=== PATIENT | female | born 1985 | race Caucasian/White ===

== ENCOUNTER 2017-04-28 09:56 | Emergency (ER) | payer BC ==
[2017-04-28] MEDS ORDERED: IPRATROPIUM-ALBUTEROL 3 ML NEB INHALATION STA (10:17)
--- NOTE | 2017-04-28 10:20 | ED ---
URI HPI - General Chief Complaint: Upper Respiratory Infection Stated Complaint: FLU Time Seen by Provider: 04/28/17 10:03 Source: patient, RN notes reviewed Mode of arrival: ambulatory Limitations: no limitations - History of Present Illness Initial Comments: This is a 31-year-old female history of asthma states she's had upper respiratory type symptoms. Past 3-4 days with fevers chills sweats cough with unknown colored phlegm rhinorrhea generalized body aches anterior chest wall pain. She states it hurts when she coughs and breathes but no other times. No nausea vomiting diarrhea she did state that her children recently had GI symptoms. Her is a smoker but apparently does smoke outside. No other complaints at this time she denies any overt shortness of breath exertional dyspnea and exertional fatigue and palpitations. MD Complaint: fever, cough, rhinorrhea, nasal congestion, other - Related Data Home Medications Medication Instructions Recorded Confirmed Albuterol Inhaler [Ventolin Hfa 1 - 2 puff INHALATION RT-Q6H PRN 04/28/17 Inhaler] Albuterol Nebulized [Ventolin 2.5 mg INHALATION RT-Q4H PRN 04/28/17 04/28/17 Nebulized] Control 1 tab PO HS 04/28/17 04/28/17 Fexofenadine HCl [Marilyn Allergy] 180 mg PO DAILY 04/28/17 04/28/17 Pseudoephedrine 12Hr [Sudafed 12 1 tab PO BID 04/28/17 04/28/17 Hour] Previous Rx's Medication Instructions Recorded Oseltamivir [Tamiflu] 75 mg PO Q12HR #10 cap 04/28/17 Allergies Allergy/AdvReac Type Severity Reaction Status Date / Time No Known Allergies Allergy Verified 04/28/17 12:42 Review of Systems ROS Statement: Those systems with pertinent positive or pertinent negative responses have been documented in the HPI. ROS Other: All systems not noted in ROS Statement are negative. Past Medical History Past Medical History: Asthma Additional Past Medical History / Comment(s): allergies History of Any Multi-Drug Resistant Organisms: None Reported Additional Past Surgical History / Comment(s): colonoscopy Past Psychological History: No Psychological Hx Reported Smoking Status: Former smoker Past Alcohol Use History: None Reported Past Drug Use History: None Reported General Exam - General Exam Comments Initial Comments: This is a well-developed well-nourished awake alert oriented 3 female Limitations: no limitations General appearance: alert, in no apparent distress Head exam: Present: atraumatic, normocephalic, normal inspection Eye exam: Present: normal appearance, PERRL, EOMI. Absent: scleral icterus, conjunctival injection, periorbital swelling ENT exam: Present: mucous membranes moist, other (Boggy swollen nasal mucosa with some clear drainage noted) Neck exam: Present: normal inspection. Absent: tenderness, meningismus, lymphadenopathy Respiratory exam: Present: chest wall tenderness (Tenderness palpation along the costochondral margin), decreased breath sounds. Absent: respiratory distress, wheezes, rales, rhonchi, stridor Cardiovascular Exam: Present: regular rate, normal rhythm, normal heart sounds. Absent: systolic murmur, diastolic murmur, rubs, gallop, clicks GI/Abdominal exam: Present: soft, normal bowel sounds. Absent: distended, tenderness, guarding, rebound, rigid Extremities exam: Present: normal inspection, full ROM, normal capillary refill. Absent: tenderness, pedal edema, joint swelling, calf tenderness Back exam: Present: normal inspection Neurological exam: Present: alert, oriented X3, CN II-XII intact Psychiatric exam: Present: normal affect, normal mood Skin exam: Present: warm, dry, intact, normal color. Absent: rash Course Vital Signs 04/28/17 04/28/17 04/28/17 09:57 10:32 10:42 Temperature 98.0 F Pulse Rate 101 H 100 100 Respiratory 20 Rate Blood Pressure 120/73 O2 Sat by Pulse 99 Oximetry Medical Decision Making - Medical Decision Making I did reevaluate patient several occasions she feels much improved after IV fluids. She'll be discharged on appropriate medication we did discuss EKG findings there likely old she has no other symptomatology no pleuritic chest pain no palpitations she will follow-up with her doctor and return when necessary - Lab Data Result diagrams: 04/28/17 11:30 04/28/17 11:30 Lab Results 04/28/17 04/28/17 04/28/17 Range/Units 10:20 11:30 11:30 WBC 3.4 L (3.8-10.6) k/uL RBC 4.87 (3.80-5.40) m/uL Hgb 13.9 (11.4-16.0) gm/dL Hct 42.7 (34.0-46.0) % MCV 87.7 (80.0-100.0) fL MCH 28.6 (25.0-35.0) pg MCHC 32.6 (31.0-37.0) g/dL RDW 12.1 (11.5-15.5) % Plt Count 207 (150-450) k/uL Neutrophils % 59 % Lymphocytes % 28 % Monocytes % 9 % Eosinophils % 1 % Basophils % 0 % Neutrophils # 2.0 (1.3-7.7) k/uL Lymphocytes # 1.0 (1.0-4.8) k/uL Monocytes # 0.3 (0-1.0) k/uL Eosinophils # 0.0 (0-0.7) k/uL Basophils # 0.0 (0-0.2) k/uL D-Dimer (<0.60) mg/L FEU Sodium (137-145) mmol/L Potassium (3.5-5.1) mmol/L Chloride (98-107) mmol/L Carbon Dioxide (22-30) mmol/L Anion Gap mmol/L BUN (7-17) mg/dL Creatinine (0.52-1.04) mg/dL Est GFR (CKD-EPI)AfAm (>60 ml/min/1.73 sqM) Est GFR (CKD-EPI)NonAf (>60 ml/min/1.73 sqM) Glucose (74-99) mg/dL Calcium (8.4-10.2) mg/dL Magnesium (1.6-2.3) mg/dL Total Bilirubin (0.2-1.3) mg/dL AST (14-36) U/L ALT (9-52) U/L Alkaline Phosphatase (38-126) U/L Total Creatine Kinase 53 (30-135) U/L CK-MB (CK-2) <0.2 (0.0-2.4) ng/mL CK-MB (CK-2) Rel Index Troponin I <0.012 (0.000-0.034) ng/mL Total Protein (6.3-8.2) g/dL Albumin (3.5-5.0) g/dL Influenza Type A RNA Detected H (Not Detectd) Influenza Type B (PCR) Not Detected (Not Detectd) 04/28/17 04/28/17 Range/Units 11:30 11:30 WBC (3.8-10.6) k/uL RBC (3.80-5.40) m/uL Hgb (11.4-16.0) gm/dL Hct (34.0-46.0) % MCV (80.0-100.0) fL MCH (25.0-35.0) pg MCHC (31.0-37.0) g/dL RDW (11.5-15.5) % Plt Count (150-450) k/uL Neutrophils % % Lymphocytes % % Monocytes % % Eosinophils % % Basophils % % Neutrophils # (1.3-7.7) k/uL Lymphocytes # (1.0-4.8) k/uL Monocytes # (0-1.0) k/uL Eosinophils # (0-0.7) k/uL Basophils # (0-0.2) k/uL D-Dimer 0.50 (<0.60) mg/L FEU Sodium 139 (137-145) mmol/L Potassium 4.5 (3.5-5.1) mmol/L Chloride 102 (98-107) mmol/L Carbon Dioxide 22 (22-30) mmol/L Anion Gap 15 mmol/L BUN 10 (7-17) mg/dL Creatinine 0.60 (0.52-1.04) mg/dL Est GFR (CKD-EPI)AfAm >90 (>60 ml/min/1.73 sqM) Est GFR (CKD-EPI)NonAf >90 (>60 ml/min/1.73 sqM) Glucose 104 H (74-99) mg/dL Calcium 8.9 (8.4-10.2) mg/dL Magnesium 1.7 (1.6-2.3) mg/dL Total Bilirubin 0.3 (0.2-1.3) mg/dL AST 31 (14-36) U/L ALT 33 (9-52) U/L Alkaline Phosphatase 64 (38-126) U/L Total Creatine Kinase (30-135) U/L CK-MB (CK-2) (0.0-2.4) ng/mL CK-MB (CK-2) Rel Index Troponin I (0.000-0.034) ng/mL Total Protein 7.3 (6.3-8.2) g/dL Albumin 4.1 (3.5-5.0) g/dL Influenza Type A RNA (Not Detectd) Influenza Type B (PCR) (Not Detectd) - Radiology Data Radiology results: report reviewed (Immunization no acute findings.), image reviewed Disposition Clinical Impression: Influenza A, Viral syndrome Disposition: HOME SELF-CARE Condition: Good Instructions: Influenza (ED), Viral Syndrome (ED) Prescriptions: Oseltamivir [Tamiflu] 75 mg PO Q12HR #10 cap Referrals: Rosie Martin DO [Primary Care Provider] - 1-2 days
[2017-04-28] MEDS ORDERED: OSELTAMIVIR 75 MG CAP PO STA (10:44)
--- NOTE | 2017-04-28 11:04 | XR ---
EXAMINATION TYPE: XR chest 2V DATE OF EXAM ORDERED: 04/28/2017 HISTORY: cough. REFERENCE: None. FINDINGS: The lungs are clear. Pleural spaces are clear. Heart size is normal. IMPRESSION: NORMAL CHEST.
[2017-04-28 11:47] LABS: Basophils % (A) 0 %; Eosinophils % (A) 1 %; HCT 42.7 % (34.0-46.0); HGB 13.9 gm/dL (11.4-16.0); Lymphocytes % (A) 28 %; MCH 28.6 pg (25.0-35.0); MCHC 32.6 g/dL (31.0-37.0); MCV 87.7 fL (80.0-100.0); Mean Platelet Volume 6.8; Monocytes # (A) 0.3 k/uL (0-1.0); Monocytes % (A) 9 %; Neutrophils % (A) 59 %; Platelet Count 207 k/uL (150-450); RBC 4.87 m/uL (3.80-5.40); RDW 12.1 % (11.5-15.5); WBC 3.4 k/uL (3.8-10.6)
[2017-04-28 11:54] LABS: ALT 33 U/L (9-52); AST 31 U/L (14-36); Albumin 4.1 g/dL (3.5-5.0); Alkaline Phosphatase 64 U/L (38-126); Anion Gap 15 mmol/L; Blood Urea Nitrogen 10 mg/dL (7-17); Calcium 8.9 mg/dL (8.4-10.2); Carbon Dioxide 22 mmol/L (22-30); Chloride 102 mmol/L (98-107); Glucose 104 mg/dL (74-99); Magnesium 1.7 mg/dL (1.6-2.3); Potassium 4.5 mmol/L (3.5-5.1); Sodium 139 mmol/L (137-145); Total Bilirubin 0.3 mg/dL (0.2-1.3); Total Protein 7.3 g/dL (6.3-8.2)
[2017-04-28] MEDS ORDERED: ONDANSETRON 4 MG/2 ML VIAL IVP STA (12:00)
[2017-04-28 12:07] LABS: Creatine Kinase 53 U/L (30-135)
[2017-04-28 12:20] LABS: Creatine Kinase MB <0.2 ng/mL (0.0-2.4); Troponin I <0.012 ng/mL (0.000-0.034)
[2017-04-28] MEDS ORDERED: SODIUM CHLORIDE 0.9% 1,000 ML IV ONE (12:36)
[2017-04-28 13:42] VITALS: BP 122/75; PULSE 90; RESP 18; TEMP 97.6
== END 2017-04-28 13:42 | disposition home or self-care (01) ==
LOC: EC 09:56
DX: J10.1 Influenza due to other identified influenza virus with other respiratory manifestations (principal); B34.9 Viral infection, unspecified; Z87.891 Personal history of nicotine dependence; Z79.899 Other long term (current) drug therapy
CPT/HCPCS: 36415; 94640; 93005; 85379; 80053; 82550; 82553; 83735; 84484; 85025; 87502; 71046; 99284; 96374; 96361; J2405

== ENCOUNTER 2017-06-09 19:45 | Emergency (ER) | payer BC ==
[2017-06-09 19:52] VITALS: RESP 18
--- NOTE | 2017-06-09 20:31 | XR ---
EXAMINATION TYPE: XR hand complete RT DATE OF EXAM: 06/09/2017 CLINICAL HISTORY: pain TECHNIQUE: Frontal, lateral and oblique images of the right hand are obtained. COMPARISON: None. FINDINGS: There is no acute fracture/dislocation evident. The joint spaces appear within normal limi ts. Dorsal soft tissue swelling identified. IMPRESSION: There is no acute fracture or dislocation ICD 10 NO FRACTURE, INITIAL EVALUATION
--- NOTE | 2017-06-09 21:10 | ED ---
General Adult HPI - General Chief complaint: Extremity Injury, Upper Stated complaint: Hand injury Time Seen by Provider: 06/09/17 20:28 Source: patient, RN notes reviewed Mode of arrival: ambulatory Limitations: no limitations - History of Present Illness Initial comments: 31-year-old female presents to the emergency department for chief complaint of right hand pain 2 hours. Patient states that she punched a car window with her right hand. Patient is right-hand dominant. Patient states it started to swell quickly and she was worried it was broken. Patient states it hurts to move her fingers. Patient denies pain in the scaphoid or wrist. Patient denies pain in the forearm or elbow. Patient denies any other injuries. Patient denies any complaint at this time including shortness of breath, chest pain, abdominal pain, nausea or vomiting. - Related Data Home Medications Medication Instructions Recorded Confirmed Albuterol Inhaler [Ventolin Hfa 1 - 2 puff INHALATION RT-Q6H PRN 04/28/17 Inhaler] Albuterol Nebulized [Ventolin 2.5 mg INHALATION RT-Q4H PRN 04/28/17 04/28/17 Nebulized] Control 1 tab PO HS 04/28/17 04/28/17 Fexofenadine HCl [Marilyn Allergy] 180 mg PO DAILY 04/28/17 04/28/17 Pseudoephedrine 12Hr [Sudafed 12 1 tab PO BID 04/28/17 04/28/17 Hour] Previous Rx's Medication Instructions Recorded Oseltamivir [Tamiflu] 75 mg PO Q12HR #10 cap 04/28/17 Allergies Allergy/AdvReac Type Severity Reaction Status Date / Time No Known Allergies Allergy Verified 06/09/17 19:52 Review of Systems ROS Statement: Those systems with pertinent positive or pertinent negative responses have been documented in the HPI. ROS Other: All systems not noted in ROS Statement are negative. Past Medical History Past Medical History: Asthma Additional Past Medical History / Comment(s): allergies, History of Any Multi-Drug Resistant Organisms: None Reported Additional Past Surgical History / Comment(s): colonoscopy, Past Psychological History: Depression Smoking Status: Former smoker Past Alcohol Use History: Occasional Past Drug Use History: None Reported General Exam Limitations: no limitations General appearance: alert, in no apparent distress Respiratory exam: Present: normal lung sounds bilaterally. Absent: respiratory distress, wheezes, rales, rhonchi, stridor Cardiovascular Exam: Present: regular rate, normal rhythm, normal heart sounds. Absent: systolic murmur, diastolic murmur, rubs, gallop, clicks Extremities exam: Present: tenderness (Patient has tenderness over the second and third metacarpal heads of the right hand. No scaphoid tenderness. No tenderness elsewhere in the right upper extremity or hand.), normal capillary refill (Refill less than 2 seconds and radial pulse 2+ in the right upper extremity.), joint swelling (Patient has moderate swelling noted to the second and third carpal heads of the right hand. There is also ecchymosis present.), other (Patient has full sensation in the right hand.). Absent: full ROM (Full range of motion of the right wrist. Patient has limited range of motion of the second and third digits. Patient has about 10 of flexion and extension of the second and third digit. ) Course Vital Signs 06/09/17 19:48 Temperature 98.0 F Pulse Rate 91 Respiratory 18 Rate Blood Pressure 131/79 O2 Sat by Pulse 98 Oximetry Procedures - Procedures Initial comment: Neurovascular intact before splint application Indication: Right hand pain Type: Short arm volar Wounds: no abrasions or lacerations underneath splint Neurovascular status: patient has sensation and movement of digits extending outside the splint, there is no cyanosis, capillary refill < 2 seconds Follow-up: patient given number for orthopedics and instructed to phone to make an appointment. Patient aware she can return to the Emergency Department if any difficulties. Medical Decision Making - Medical Decision Making 31-year-old female presents to the emergency department for a chief complaint of right and pain. This happened about 2 hours ago and patient punched a car window. Patient is right-hand dominant. On exam patient has ecchymosis and swelling noted of the second and third metacarpal heads on the right hand. She has tenderness to this area. No tenderness elsewhere in the R hand including the scaphoid. Full range of motion of the right wrist and rest of the right upper extremity. Neurovascular intact in the right upper extremity. X-ray shows no acute fractures or dislocations. However, patient was splinted in a volar short arm splint due to the limited range of motion and the amount of swelling. She will follow-up with orthopedics in one to 2 days. Patient was offered pain medication in the emergency department which she declined. Patient states she will go home and take Motrin. Patient was advised to take Motrin and Tylenol for pain. She was educated to rest, ice, and elevate the affected hand. She will follow up with orthopedics in one to 2 days. She will return to the emergency Department if she has any worsening symptoms. Disposition Clinical Impression: Hand injury Disposition: HOME SELF-CARE Condition: Good Instructions: Hand Sprain (ED), RICE Therapy (ED) Additional Instructions: Please take Motrin and Tylenol for pain relief. Please return to the emergency department if symptoms worsen. Remember to rest, ice, and elevate the right hand. Follow-up with orthopedics in one to 2 days. Is patient prescribed a controlled substance at d/c from ED?: No Referrals: Rosie Martin DO [Primary Care Provider] - 1-2 days Pb Elkins MD [STAFF PHYSICIAN] - 1-2 days Time of Disposition: 21:10
[2017-06-09 21:16] VITALS: BP 135/78; PULSE 89; TEMP 97.5
== END 2017-06-09 21:16 | disposition home or self-care (01) ==
LOC: EC 19:45
DX: S60.221A Contusion of right hand, initial encounter (principal); M25.441 Effusion, right hand; J45.909 Unspecified asthma, uncomplicated; Z87.891 Personal history of nicotine dependence; Z79.3 Long term (current) use of hormonal contraceptives; Z79.899 Other long term (current) drug therapy; Z91.09 Other allergy status, other than to drugs and biological substances; W22.8XXA Striking against or struck by other objects, initial encounter
CPT/HCPCS: 29125; 99283

== ENCOUNTER 2018-05-15 21:39 | Emergency (ER) | payer BC ==
[2018-05-15 21:51] VITALS: RESP 18; TEMP 98
--- NOTE | 2018-05-15 23:07 | XR ---
EXAM: XR Chest, 2 Views CLINICAL HISTORY: ITS.REASON XR Reason: Pain TECHNIQUE: Frontal and lateral views of the chest. COMPARISON: No relevant prior studies available. FINDINGS: Lungs: Unremarkable. No consolidation. Pleural space: Unremarkable. No pneumothorax. Heart: Unremarkable. No cardiomegaly. Mediastinum: Unremarkable. Bones/joints: No acute fracture. IMPRESSION: No acute findings.
[2018-05-15] MEDS ORDERED: IPRATROPIUM-ALBUTEROL 3 ML NEB INHALATION STA (23:21)
[2018-05-15] MEDS ORDERED: methylPREDNISolone SOD SUCCI 125 MG/2 ML VIAL IM ONE (23:21)
[2018-05-16 02:03] VITALS: BP 121/86; PULSE 62
--- NOTE | 2018-05-16 02:11 | CT ---
EXAM: CT Angiography Chest Without And With Intravenous Contrast CLINICAL HISTORY: ITS.REASON CT Reason: Pain TECHNIQUE: Axial computed tomographic angiography images of the chest without and with intravenous contrast using pulmonary embolism protocol. CTDI is 5 mGy and DLP is [address] exam was performed using one or more of the following dose reduction techniques: automated exposure control, adjustment of the mA and/or kV according to patient size, and/or use of iterative reconstruction technique. 3D reconstructed images were created and reviewed. COMPARISON: No relevant prior studies available. FINDINGS: Pulmonary arteries: Unremarkable. No pulmonary embolism. Aorta: No suspicious findings. No thoracic aortic aneurysm. Lungs: Unremarkable. No mass. No consolidation. Pleural space: Unremarkable. No significant effusion. No pneumothorax. Heart: Unremarkable. No cardiomegaly. No significant pericardial effusion. No evidence of RV dysfunction. Bones/joints: No acute fracture. No dislocation. Soft tissues: Unremarkable. Lymph nodes: Unremarkable. No enlarged lymph nodes. IMPRESSION: Normal chest CTA. No pulmonary embolism.
--- NOTE | 2018-05-16 02:17 | ED ---
URI HPI - General Chief Complaint: Upper Respiratory Infection Stated Complaint: SOB, Pain in Chest Time Seen by Provider: 05/15/18 22:27 Source: patient Mode of arrival: ambulatory Limitations: no limitations - History of Present Illness Initial Comments: 32-year-old female patient presents to the emergency department today for evaluation of shortness of breath and chest pain. Patient states she has had a cough starting 2 weeks ago when she was diagnosed with influenza. Patient states she does have a history of asthma. Patient states she has been having substernal chest pain and pressure. States that she has felt short of breath with this. Reports radiation of pain through to her back. She denies any sputum production or hemoptysis. Denies any current fever or chills. She does admit to taking a hormonal control pill. She denies any recent travel, calf pain, or leg pain. Patient denies any recent rash, abdominal pain, nausea, vomiting, diarrhea, constipation, back pain, numbness, tingling, dizziness, weakness, hematuria, dysuria, urinary urgency, urinary frequency, headache, visual changes, or any other complaints. She states her period ended yesterday, she denies chance of . - Related Data Home Medications Medication Instructions Recorded Confirmed Albuterol Inhaler [Ventolin Hfa 1 - 2 puff INHALATION RT-Q6H PRN 04/28/17 05/15/18 Inhaler] Albuterol Nebulized [Ventolin 2.5 mg INHALATION RT-QID PRN 04/28/17 05/15/18 Nebulized] Pseudoephedrine 12Hr [Sudafed 12 1 tab PO BID 04/28/17 05/15/18 Hour] Cetirizine HCl [Zyrtec] 10 mg PO DAILY 05/15/18 05/15/18 Norethindrone-E.estradiol-Iron 1 tab PO DAILY 05/15/18 05/15/18 [Junel Fe 1 mg-20 Mcg Tablet] Ranitidine HCl [Zantac] 150 mg PO BID 05/15/18 05/15/18 Previous Rx's Medication Instructions Recorded Ipratropium-Albuterol Nebulize 3 ml INHALATION QID PRN #30 neb 05/16/18 [Duoneb 0.5 mg-3 mg/3 ml Soln] predniSONE 50 mg PO DAILY #5 tablet 05/16/18 Allergies Allergy/AdvReac Type Severity Reaction Status Date / Time No Known Allergies Allergy Verified 05/15/18 22:39 Review of Systems ROS Statement: Those systems with pertinent positive or pertinent negative responses have been documented in the HPI. ROS Other: All systems not noted in ROS Statement are negative. Past Medical History Past Medical History: Asthma Additional Past Medical History / Comment(s): allergies, History of Any Multi-Drug Resistant Organisms: None Reported Additional Past Surgical History / Comment(s): colonoscopy, Past Psychological History: Depression Smoking Status: Former smoker Past Alcohol Use History: Occasional Past Drug Use History: None Reported General Exam Limitations: no limitations General appearance: alert, in no apparent distress, other (Physical well- developed, well-nourished adult female patient in no acute distress. Vital signs upon presentation are temperature 98.0F, pulse 68, respirations 18, blood pressure 119/80, pulse ox 96% on room air.) Eye exam: Present: normal appearance, PERRL, EOMI. Absent: scleral icterus, conjunctival injection, periorbital swelling ENT exam: Present: normal exam, normal oropharynx, mucous membranes moist Respiratory exam: Present: normal lung sounds bilaterally. Absent: respiratory distress, wheezes, rales, rhonchi, stridor Cardiovascular Exam: Present: regular rate, normal rhythm, normal heart sounds. Absent: systolic murmur, diastolic murmur, rubs, gallop, clicks GI/Abdominal exam: Present: soft, normal bowel sounds. Absent: distended, tenderness, guarding, rebound, rigid Neurological exam: Present: alert, oriented X3, CN II-XII intact Psychiatric exam: Present: normal affect, normal mood Skin exam: Present: warm, dry, intact, normal color. Absent: rash Course Vital Signs 05/15/18 05/15/18 05/16/18 21:49 23:59 00:05 Temperature 98 F Pulse Rate 68 76 84 Respiratory 18 Rate Blood Pressure 119/80 O2 Sat by Pulse 96 Oximetry 05/16/18 01:51 Temperature Pulse Rate 62 Respiratory 18 Rate Blood Pressure 121/86 O2 Sat by Pulse 99 Oximetry Medical Decision Making - Medical Decision Making 32-year-old female patient presents to the emergency department today complaining of substernal chest pressure and shortness of breath. Patient has been coughing for the last 2 weeks after having influenza. Physical examination is unremarkable. Lungs are clear to auscultation with good air movement. Patient was given Solu-Medrol and DuoNeb breathing treatment here in the emergency department, this did not improve her symptoms. Chest x-ray showed no acute cardiopulmonary process. EKG was unremarkable. Showed no changes from previous EKG from 2018. D-dimer was drawn and showed elevation of 0.78. CT angiography of the chest was obtained and showed no evidence of pulmonary embolism or other abnormalities. Did discuss findings and results with the patient. She'll be treated for acute bronchitis with steroids and DuoNeb treatments. She is instructed to follow-up with her primary care physician for recheck as soon as possible. She does have an appointment in the morning at 945. Return parameters were discussed in detail. She verbalizes understanding and agrees with this plan. - Lab Data Lab Results 05/16/18 Range/Units 01:01 D-Dimer 0.78 H (<0.60) mg/L FEU - EKG Data -: EKG Interpreted by Me EKG Comments: EKG obtained at 0053 shows normal sinus rhythm with a sinus arrhythmia. Ventricular rate is 72, VT interval 120, QRS duration 86, QT 400, QTC 430. No evidence of ST elevation or depression. - Radiology Data Radiology results: report reviewed, image reviewed Two-view x-ray of the chest is obtained. Report was reviewed in its entirety. Impression by Dr. Riojas shows no acute findings. CT angiography of the chest was obtained, report was reviewed in its entirety. Impression by Dr. Riojas shows normal chest CTA. No pulmonary embolism. Disposition Clinical Impression: Dyspnea Disposition: HOME SELF-CARE Condition: Good Instructions (If sedation given, give patient instructions): Dyspnea (ED) Additional Instructions: Do home breathing treatments. Take anti-inflammatory medications for pain relief. Complete steroid prescription in full. Follow up with your primary care physician for recheck in 1-2 days. Return immediately for any new, worsening, or concerning symptoms. Prescriptions: Ipratropium-Albuterol Nebulize [Duoneb 0.5 mg-3 mg/3 ml Soln] 3 ml INHALATION QID PRN #30 neb PRN Reason: Shortness Of Breath predniSONE 50 mg PO DAILY #5 tablet Is patient prescribed a controlled substance at d/c from ED?: No Referrals: Rosie MartinDO [Primary Care Provider] - 1-2 days Time of Disposition: 02:16
== END 2018-05-16 02:23 | disposition home or self-care (01) ==
LOC: EC 21:39
DX: R06.02 Shortness of breath (principal); R07.2 Precordial pain; R05 Cough; J45.909 Unspecified asthma, uncomplicated; Z87.891 Personal history of nicotine dependence; Z79.3 Long term (current) use of hormonal contraceptives; Z79.899 Other long term (current) drug therapy
CPT/HCPCS: 71046; 99285; 96372; J2930; 36415; 71275; 85379; 93005; 94640

== ENCOUNTER 2018-07-26 08:34 | Day surgery (SDC) | payer BC ==
[2018-07-10 12:11] VITALS: BMI 26.9
[~2018-07-26 08:34] MED LIST: LACTATED RINGERS 1,000 ML IV SCH
[2018-07-26 08:59] VITALS: RESP 16; TEMP 98
[2018-07-26] MEDS ORDERED: LIDOCAINE 1% 20 ML VIAL (10MG/ML) FOR IV START INTRADERMA ONE (09:05)
[2018-07-26] MEDS ORDERED: GLYCOPYRROLATE 0.2 MG/ML 2 ML VIAL ONE (09:35)
[2018-07-26] MEDS ORDERED: LIDOCAINE 1% INJ 10MG/ML (20 ML MDV) ONE (09:35)
[2018-07-26] MEDS ORDERED: PROPOFOL 10 MG/ML 20 ML VIAL IV ONE (09:35)
--- NOTE | 2018-07-26 09:45 | P.PCN ---
Date of Procedure: 07/26/18 Procedure(s) Performed: BRIEF HISTORY: Patient is a 32-year-old, pleasant, white female, scheduled for an upper endoscopy as a part of evaluation of long-standing history of GERD. Recently her symptoms have been progressively getting worse associated with abdominal bloating and hence medications which is changed to Prilosec 20 mg daily as well as Zantac as needed and still remains symptomatic. Hence scheduled for an upper endoscopy to evaluate further. PROCEDURE PERFORMED: Esophagogastroduodenoscopy with biopsy. PREOPERATIVE DIAGNOSIS: Long-standing history of GERD. IV sedation per anesthesia. PROCEDURE: After informed consent was obtained, the patient was brought into the endoscopy unit. IV sedation was administered by Anesthesia under continuous monitoring. Initially the Olympus GIF-140 video endoscope was inserted into the mouth. Esophagus intubated without any difficulty. It was gradually advanced into the stomach and duodenum and carefully examined. The bulb and the second part of the duodenum appeared normal. Acetaminophen from the duodenum to rule out celiac disease. The scope at this time was withdrawn to the stomach, adequately insufflated with air, and upon careful examination, mucosa of the antrum, had mild gastritis and biopsies were done from this area. The body, cardia and the fundus appeared normal. The scope was then withdrawn into the esophagus. Small hiatal hernia noted. The GE junction was located at 35 cm from the incisors. There were superficial erosions at the GE junction consistent with LA grade B reflux esophagitis. Rest of the esophagus appeared normal and the patient tolerated the procedure well. IMPRESSION: 1. Mild antral gastritis. 2. Small sliding Hiatal hernia and LA grade B reflux esophagitis. RECOMMENDATIONS: The findings of this examination were discussed with the patient as well as a family. She was advised to follow with the biopsy results. In the meantime she was advised to increase the Prilosec to 20 mg twice daily half hour before breakfast and dinnertime for 8 weeks and follow antireflux measures.. If she still remains symptomatic she was advised to follow up in office in 6 weeks.
[2018-07-26 10:18] VITALS: BP 117/81; PULSE 82
== END 2018-07-26 10:21 | disposition home or self-care (01) ==
LOC: ORWHC2ENDO 08:34
PROVIDERS: ATTEND Internal Medicine Gastroenterology
DX: K21.0 Gastro-esophageal reflux disease with esophagitis (principal); K29.50 Unspecified chronic gastritis without bleeding; K44.9 Diaphragmatic hernia without obstruction or gangrene; J45.909 Unspecified asthma, uncomplicated; Z79.82 Long term (current) use of aspirin; Z79.899 Other long term (current) drug therapy
CPT/HCPCS: 81025; 88305; 43239; J2001; J2704

== ENCOUNTER → 2019-02-04 | Outpatient (CLI) | payer OTHER ==
--- NOTE | 2019-02-04 18:09 | MR ---
EXAMINATION TYPE: MR hand RT wo con DATE OF EXAM: 02/04/2019 COMPARISON: Hand x-ray 06/09/2017 HISTORY: Rt hand pain, marker placed; hx of injury/fracture 1-2 yrs ago Multiplanar multiecho imaging of the right hand was performed with no contrast. The metacarpals are intact. I see no fracture. Joint spaces are fairly normal. The digits have fairly normal signal pattern. There is no evidence of focal bone destruction. There is no evidence of soft tissue mass. Flexor tendons of the hand appear intact. The carpal bones have fairly normal signal pat tern. There is no evidence of edema. Intercarpal joint spaces are fairly normal. There is slight incr eased joint fluid around the carpal bones. Triangular cartilage appears intact. There is no evidence of any subcutaneous edema. IMPRESSION: Very slight increased carpal joint fluid that could relate to minimal synovitis. Otherwise negative e xam. No fracture. There is clearing of the dorsal soft tissue swelling compared to old exam.
== END | disposition home or self-care (01) ==
LOC: RADMRIMAIN 05:56
PROVIDERS: ATTEND Orthopaedic Surgery
DX: M79.89 Other specified soft tissue disorders (principal); S60.221D Contusion of right hand, subsequent encounter

== ENCOUNTER 2019-08-15 16:48 | Emergency (ER) | payer OTHER ==
[2019-08-15] MEDS ORDERED: FAMOTIDINE 20 MG/2 ML VIAL IV STA (17:36)
--- NOTE | 2019-08-15 18:21 | ED ---
Abdominal Pain HPI - General Chief Complaint: Abdominal Pain Stated Complaint: Hernia Time Seen by Provider: 08/15/19 17:17 Source: patient Mode of arrival: ambulatory Limitations: no limitations - History of Present Illness Initial Comments: 33-year-old female presents today for chief complaint of epigastric pain she states she has had epigastric pain for the past week she states she was diagnosed approximately 2 years ago with a hiatal hernia she states that she feels like it is getting worse she states that her indigestion has been worsening for the past month and she was switched from Prilosec 20 mg to protonix 40mg twice daily. Patient states it has been worse even this week and she can taste acid in her mouth after eating. Denies dark or bloody stools. Denies lightheadedness of chest pain. Patient denies vomiting. Admits to chronic diarrhea secondary to IBS. Denies RUQ pain. Patient denies fevers. Patient denies lower abdominal pain or . Patient has no additional complaitns and presented to the ER for further evaluation/treatment. Patient appears well on arrival no acute distress. - Related Data Home Medications Medication Instructions Recorded Confirmed Albuterol Inhaler (Mhu) [Ventolin 1 - 2 puff INHALATION RT-Q6H PRN 04/28/17 07/26/18 Hfa Inhaler] Pseudoephedrine 12Hr [Sudafed 12 1 tab PO DAILY 04/28/17 07/26/18 Hour] Cetirizine HCl [Zyrtec] 10 mg PO DAILY 05/15/18 07/26/18 Norethindrone-E.estradiol-Iron 1 tab PO HS 05/15/18 07/26/18 [Junel Fe 1 mg-20 Mcg Tablet] Aspirin/Acetaminophen/Caffeine 1 each PO DAILY PRN 07/10/18 07/24/18 [Excedrin Migraine Caplet] Ibuprofen [Motrin Ib] 400 - 600 mg PO Q6H PRN 07/10/18 07/26/18 Omeprazole [PriLOSEC] 20 mg PO AC-BRKFST 07/10/18 07/26/18 Previous Rx's Medication Instructions Recorded Ipratropium-Albuterol Nebulize 3 ml INHALATION QID PRN #30 neb 05/16/18 [Duoneb 0.5 mg-3 mg/3 ml Soln] Allergies Allergy/AdvReac Type Severity Reaction Status Date / Time No Known Allergies Allergy Verified 07/24/18 09:05 Review of Systems ROS Statement: Those systems with pertinent positive or pertinent negative responses have been documented in the HPI. ROS Other: All systems not noted in ROS Statement are negative. Past Medical History Past Medical History: Asthma, GERD/Reflux, Skin Disorder Additional Past Medical History / Comment(s): Hx Allergies, eczema, migraines, hx vertigo. WORSENING GERD SINCE 03/2018.IBS, Hiatal hernia History of Any Multi-Drug Resistant Organisms: None Reported Additional Past Surgical History / Comment(s): WISDOM TOOTH. Colonoscopy Past Anesthesia/Blood Transfusion Reactions: No Reported Reaction Past Psychological History: Depression Smoking Status: Former smoker Past Alcohol Use History: Occasional Past Drug Use History: None Reported - Past Family History Mother Family Medical History: No Reported History General Exam - General Exam Comments Initial Comments: General: The patient is awake and alert, in no distress Eye: +3 mm pupils are equal, round and reactive to light, extra-ocular movements are intact. No nystagmus. There is normal conjunctiva bilaterally. No signs of icterus. Ears, nose, mouth and throat: There are moist mucous membranes and no oral lesions. Neck: The neck is supple, there is no tenderness or JVD. Cardiovascular: There is a regular rate and rhythm. No murmur, rub or gallop is appreciated. Respiratory: Lungs are clear to auscultation, respirations are non-labored, breath sounds are equal. No wheezes, stridor, rales, or rhonchi. Gastrointestinal: Soft, non-distended, epigastric tenderness to palpation of the abdomen without masses or organomegaly noted. There is no rebound or guarding present. Musculoskeletal: Normal ROM, no tenderness. Strength 5/5. Sensation intact. Raidial pulses equal bilaterally 2+. Neurological: A&O x 3. CN II-XII intact, There are no obvious motor or sensory deficits. Coordination appears grossly intact. Speech is normal. Skin: Skin is warm and dry and no rashes or lesions are noted. Psychiatric: Cooperative, appropriate mood & affect, normal judgment. Limitations: no limitations Course Vital Signs 08/15/19 08/15/19 16:55 19:53 Temperature 98.0 F 98.1 F Pulse Rate 71 78 Respiratory 18 16 Rate Blood Pressure 125/58 117/72 O2 Sat by Pulse 100 100 Oximetry Medical Decision Making - Medical Decision Making CT reveals liver lesion. Patient may have a peptic ulcer given area of pain, cannot r/o withtou direct visualization. Lipase WNL. Patient has no signs of pneumoperitoneum. Patient states she is a sick taste in mouth and history of hiatal hernia, symptoms may also be a results of reflux secondary to hernia. Patient was instructed to avoid NSAIDS like motrin/ibuprofen, take tylenol for pain. Avoid coffee, stress, spicy or acidic foods. Patient is to take pepcid with protonix and call GI on sunday to scheduled f/u. If pain increases/persists to return to the ER immediately. Patient verbalized understanding. Patient case discussed with Dr. Dickey who was agreeable to care plan and discharge. - Lab Data Result diagrams: 08/15/19 18:15 08/15/19 18:15 Lab Results 08/15/19 08/15/19 08/15/19 Range/Units 18:15 18:15 18:15 WBC 6.0 (3.8-10.6) k/uL RBC 4.55 (3.80-5.40) m/uL Hgb 13.5 (11.4-16.0) gm/dL Hct 39.8 (34.0-46.0) % MCV 87.6 (80.0-100.0) fL MCH 29.8 (25.0-35.0) pg MCHC 34.0 (31.0-37.0) g/dL RDW 12.0 (11.5-15.5) % Plt Count 286 (150-450) k/uL Neutrophils % 46 % Lymphocytes % 46 % Monocytes % 5 % Eosinophils % 1 % Basophils % 1 % Neutrophils # 2.7 (1.3-7.7) k/uL Lymphocytes # 2.8 (1.0-4.8) k/uL Monocytes # 0.3 (0-1.0) k/uL Eosinophils # 0.0 (0-0.7) k/uL Basophils # 0.0 (0-0.2) k/uL Sodium 133 L (137-145) mmol/L Potassium 4.0 (3.5-5.1) mmol/L Chloride 98 (98-107) mmol/L Carbon Dioxide 27 (22-30) mmol/L Anion Gap 8 mmol/L BUN 11 (7-17) mg/dL Creatinine 0.67 (0.52-1.04) mg/dL Est GFR (CKD-EPI)AfAm >90 (>60 ml/min/1.73 sqM) Est GFR (CKD-EPI)NonAf >90 (>60 ml/min/1.73 sqM) Glucose 92 (74-99) mg/dL Calcium 9.2 (8.4-10.2) mg/dL Total Bilirubin 0.4 (0.2-1.3) mg/dL AST 23 (14-36) U/L ALT 12 (4-34) U/L Alkaline Phosphatase 83 (38-126) U/L Troponin I <0.012 (0.000-0.034) ng/mL Total Protein 7.4 (6.3-8.2) g/dL Albumin 4.4 (3.5-5.0) g/dL Amylase 62 (30-110) U/L Lipase 83 (23-300) U/L Urine Color Urine Appearance (Clear) Urine pH (5.0-8.0) Ur Specific [place] (1.001-1.035) Urine Protein (Negative) Urine Glucose (UA) (Negative) Urine Ketones (Negative) Urine Blood (Negative) Urine Nitrite (Negative) Urine Bilirubin (Negative) Urine Urobilinogen (<2.0) mg/dL Ur Leukocyte Esterase (Negative) Urine RBC (0-5) /hpf Urine WBC (0-5) /hpf Ur Squamous Epith Cells (0-4) /hpf Urine Bacteria (None) /hpf Urine Mucus (None) /hpf Urine HCG, Qual (Not Detectd) 08/15/19 08/15/19 Range/Units 18:28 18:28 WBC (3.8-10.6) k/uL RBC (3.80-5.40) m/uL Hgb (11.4-16.0) gm/dL Hct (34.0-46.0) % MCV (80.0-100.0) fL MCH (25.0-35.0) pg MCHC (31.0-37.0) g/dL RDW (11.5-15.5) % Plt Count (150-450) k/uL Neutrophils % % Lymphocytes % % Monocytes % % Eosinophils % % Basophils % % Neutrophils # (1.3-7.7) k/uL Lymphocytes # (1.0-4.8) k/uL Monocytes # (0-1.0) k/uL Eosinophils # (0-0.7) k/uL Basophils # (0-0.2) k/uL Sodium (137-145) mmol/L Potassium (3.5-5.1) mmol/L Chloride (98-107) mmol/L Carbon Dioxide (22-30) mmol/L Anion Gap mmol/L BUN (7-17) mg/dL Creatinine (0.52-1.04) mg/dL Est GFR (CKD-EPI)AfAm (>60 ml/min/1.73 sqM) Est GFR (CKD-EPI)NonAf (>60 ml/min/1.73 sqM) Glucose (74-99) mg/dL Calcium (8.4-10.2) mg/dL Total Bilirubin (0.2-1.3) mg/dL AST (14-36) U/L ALT (4-34) U/L Alkaline Phosphatase (38-126) U/L Troponin I (0.000-0.034) ng/mL Total Protein (6.3-8.2) g/dL Albumin (3.5-5.0) g/dL Amylase (30-110) U/L Lipase (23-300) U/L Urine Color Yellow Urine Appearance Cloudy H (Clear) Urine pH 6.5 (5.0-8.0) Ur Specific [place] 1.022 (1.001-1.035) Urine Protein Trace H (Negative) Urine Glucose (UA) Negative (Negative) Urine Ketones Trace H (Negative) Urine Blood Trace H (Negative) Urine Nitrite Negative (Negative) Urine Bilirubin Negative (Negative) Urine Urobilinogen <2.0 (<2.0) mg/dL Ur Leukocyte Esterase Large H (Negative) Urine RBC 2 (0-5) /hpf Urine WBC 28 H (0-5) /hpf Ur Squamous Epith Cells 18 H (0-4) /hpf Urine Bacteria Moderate H (None) /hpf Urine Mucus Many H (None) /hpf Urine HCG, Qual Not Detected (Not Detectd) Disposition Clinical Impression: Epigastric pain, Liver lesion Disposition: HOME SELF-CARE Condition: Good Instructions (If sedation given, give patient instructions): Peptic Ulcer (ED), Epigastric Pain (ED) Additional Instructions: Please use medication as discussed. Please follow-up with family doctor in the next 2 days, recommend GI follow-up in 1 week. Please return to emergency room if the symptoms increase or worsen or for any other concerns. Is patient prescribed a controlled substance at d/c from ED?: No Referrals: Rosie Martin DO [Primary Care Provider] - 1-2 days Carmen Joseph MD [STAFF PHYSICIAN] - 1-2 days Time of Disposition: 19:37
[2019-08-15 18:40] LABS: Appearance,Urine Cloudy (Clear); Bacteria,Urine Moderate /hpf; Bilirubin,Urine Negative (Negative); Blood,Urine Trace (Negative); Color,Urine Yellow; Glucose,Urine (UA) Negative (Negative); Ketones,Urine Trace (Negative); Leukocyte Esterase,Urine Large (Negative); Mucus,Urine Many /hpf; Nitrite,Urine Negative (Negative); PH, Urine 6.5 (5.0-8.0); Protein,Urine Trace (Negative); RBC,Urine 2 /hpf (0-5); Specific Gravity,Urine 1.022 (1.001-1.035); Squamous Epithelial Cell,Urine 18 /hpf (0-4); Urobilinogen,Urine <2.0 mg/dL (<2.0); WBC,Urine 28 /hpf (0-5)
[2019-08-15 19:09] LABS: Basophils % (A) 1 %; Eosinophils % (A) 1 %; HCT 39.8 % (34.0-46.0); HGB 13.5 gm/dL (11.4-16.0); Lymphocytes # (A) 2.8 k/uL (1.0-4.8); Lymphocytes % (A) 46 %; MCH 29.8 pg (25.0-35.0); MCV 87.6 fL (80.0-100.0); Mean Platelet Volume 6.9; Monocytes # (A) 0.3 k/uL (0-1.0); Monocytes % (A) 5 %; Neutrophils # (A) 2.7 k/uL (1.3-7.7); Neutrophils % (A) 46 %; Platelet Count 286 k/uL (150-450); RBC 4.55 m/uL (3.80-5.40)
[2019-08-15 19:16] LABS: ALT 12 U/L (4-34); AST 23 U/L (14-36); African American GFR (CKD) >90 (>60 ml/min/1.73 sqM); Albumin 4.4 g/dL (3.5-5.0); Alkaline Phosphatase 83 U/L (38-126); Amylase 62 U/L (30-110); Anion Gap 8 mmol/L; Blood Urea Nitrogen 11 mg/dL (7-17); Calcium 9.2 mg/dL (8.4-10.2); Carbon Dioxide 27 mmol/L (22-30); Chloride 98 mmol/L (98-107); Glucose 92 mg/dL (74-99); Non-African American GFR(CKD) >90 (>60 ml/min/1.73 sqM); Sodium 133 mmol/L (137-145); Total Bilirubin 0.4 mg/dL (0.2-1.3); Total Protein 7.4 g/dL (6.3-8.2)
--- NOTE | 2019-08-15 19:33 | CT ---
EXAMINATION TYPE: CT abdomen pelvis w con DATE OF EXAM: 08/15/2019 COMPARISON: None HISTORY: abdominal pain, hx of hernia CT DLP: 651.1 mGycm Automated exposure control for dose reduction was used. TECHNIQUE: Helical acquisition of images from the lung bases through the pelvis have been completed. CONTRAST: Performed without Oral Contrast and with IV Contrast, patient injected with 100 mL of Isovue 300. FINDINGS: Small umbilical hernia contains fat. LUNG BASES: No significant abnormality is appreciated. AORTA: No significant abnormality is appreciated. LIVER/GB: There is a hyperdense focus measuring 14 mm in the inferior aspect of the right lobe of the liver which washes out on delayed imaging, gallbladder is normal. PANCREAS: No significant abnormality is seen. SPLEEN: No significant abnormality is seen. ADRENALS: No significant abnormality is seen. KIDNEYS: No significant abnormality is seen. REPRODUCTIVE ORGANS: No significant abnormality is seen BOWEL: Small duodenal diverticulum noted at the level of the uncinate process with an air-fluid leve l. There are some fluid-filled bowel loops, areas of possible small bowel wall thickening. The append ix is not seen. FREE AIR: No Free Air visible. ASCITES: None visible. PELVIC ADENOPATHY: None visualized. RETROPERITONEAL ADENOPATHY: No Retroperitoneal Adenopathy visible. URINARY BLADDER: No significant abnormality is seen. OSSEOUS STRUCTURES: No significant abnormality is seen. IMPRESSION: INDETERMINATE LIVER LESION COULD BE INDICATIVE OF FLASH FILLING HEMANGIOMA, LIVER MRI MAY BE OF BENEF IT TO FURTHER CHARACTERIZE THE LESION
[2019-08-15] MEDS ORDERED: MAG HYDROX/AL HYDROX/SIMETH 30 ML, HYOSCYAMINE ELIXIR 10 ML, LIDOCAINE VISCOUS 2% 10 ML PO STA ×3 (19:37)
[2019-08-15] MEDS ORDERED: ACET/COD 300 MG/30 MG STARTER PACK 6 TAB BTL PO STA (19:37)
[2019-08-15 19:55] VITALS: BP 117/72; PULSE 78; RESP 16; TEMP 98.1
== END 2019-08-15 19:55 | disposition home or self-care (01) ==
LOC: EC 16:48
DX: K76.89 Other specified diseases of liver (principal); R10.13 Epigastric pain; K21.9 Gastro-esophageal reflux disease without esophagitis; K58.9 Irritable bowel syndrome, unspecified; J45.909 Unspecified asthma, uncomplicated; G43.909 Migraine, unspecified, not intractable, without status migrainosus; Z79.51 Long term (current) use of inhaled steroids; Z79.82 Long term (current) use of aspirin; Z79.899 Other long term (current) drug therapy; Z87.19 Personal history of other diseases of the digestive system; Z87.2 Personal history of diseases of the skin and subcutaneous tissue; Z87.891 Personal history of nicotine dependence; Z98.890 Other specified postprocedural states
CPT/HCPCS: 36415; 93005; 80053; 82150; 83690; 84484; 85025; 81001; 81025; 87086; 74177; 96374; 99284; Q9967

== ENCOUNTER 2019-08-21 18:44 | Emergency (ER) | payer OTHER ==
[2019-08-21 18:52] VITALS: RESP 18
[2019-08-21] MEDS ORDERED: SODIUM CHLORIDE 0.9% 1,000 ML IV STA (19:07)
[2019-08-21] MEDS ORDERED: ONDANSETRON 4 MG/2 ML VIAL IVP STA (19:07)
[2019-08-21] MEDS ORDERED: MORPHINE SULFATE 4 MG/ML SYRINGE IV STA (19:07)
[2019-08-21] MEDS ORDERED: FAMOTIDINE 20 MG/2 ML VIAL IV STA (19:08)
--- NOTE | 2019-08-21 19:11 | ED ---
General Adult HPI - General Chief complaint: Abdominal Pain Stated complaint: Abdominal pain Time Seen by Provider: 08/21/19 19:00 Source: patient, RN notes reviewed, old records reviewed Mode of arrival: ambulatory Limitations: no limitations - History of Present Illness Initial comments: Patient is a pleasant 33-year-old female presenting to the emergency Department with abdominal discomfort. Patient states she has been having more abdominal problems over the past week or so. Patient states she was having upper abdominal discomfort at first. Patient states she did see her doctor again 3 days ago and her surgeon 2 days ago. They were considering problems with her hernia or gallbladder. Patient states today discomfort is more lower abdomen. Patient also states discomfort is worse. Patient states she does have chronic abdominal problems and has been diagnosed with irritable bowel syndrome. Patient has been having some loose stools however that has improved today. Patient has nausea without vomiting. No fever. - Related Data Home Medications Medication Instructions Recorded Confirmed Pseudoephedrine 12Hr [Sudafed 12 1 tab PO DAILY 04/28/17 08/21/19 Hour] Cetirizine HCl [Zyrtec] 10 mg PO DAILY 05/15/18 08/21/19 Norethindrone-E.estradiol-Iron 1 tab PO HS 05/15/18 08/21/19 [Junel Fe 1 mg-20 Mcg Tablet] Famotidine [Pepcid AC] 10 mg PO BID PRN 08/21/19 08/21/19 Pantoprazole [Protonix] 40 mg PO BID 08/21/19 08/21/19 Allergies Allergy/AdvReac Type Severity Reaction Status Date / Time No Known Allergies Allergy Verified 08/21/19 19:41 Review of Systems ROS Statement: Those systems with pertinent positive or pertinent negative responses have been documented in the HPI. ROS Other: All systems not noted in ROS Statement are negative. Constitutional: Denies: fever Eyes: Denies: eye pain ENT: Denies: ear pain Respiratory: Denies: cough Cardiovascular: Denies: chest pain Endocrine: Denies: fatigue Gastrointestinal: Reports: as per HPI, abdominal pain, nausea. Denies: vomiting Genitourinary: Denies: dysuria Musculoskeletal: Denies: back pain Skin: Denies: rash Neurological: Denies: weakness Past Medical History Past Medical History: Asthma, GERD/Reflux, Skin Disorder Additional Past Medical History / Comment(s): Hx Allergies, eczema, migraines, hx vertigo. WORSENING GERD SINCE 03/2018.IBS, Hiatal hernia History of Any Multi-Drug Resistant Organisms: None Reported Additional Past Surgical History / Comment(s): WISDOM TOOTH. Colonoscopy Past Anesthesia/Blood Transfusion Reactions: No Reported Reaction Past Psychological History: Depression Smoking Status: Never smoker Past Alcohol Use History: Occasional Past Drug Use History: None Reported - Past Family History Mother Family Medical History: No Reported History General Exam Limitations: no limitations General appearance: alert, in no apparent distress Head exam: Present: normocephalic Eye exam: Present: normal appearance Neck exam: Present: normal inspection Respiratory exam: Present: normal lung sounds bilaterally Cardiovascular Exam: Present: regular rate, normal rhythm Expanded Peripheral pulses: 2+: Dorsalis Pedis (R), Dorsalis Pedis (L) GI/Abdominal exam: Present: soft, tenderness (Mild to moderate tenderness right lower quadrant), normal bowel sounds. Absent: distended, guarding, rebound, rigid, pulsatile mass Extremities exam: Present: normal inspection Neurological exam: Present: alert Psychiatric exam: Present: normal affect, normal mood Skin exam: Present: normal color Course Vital Signs 08/21/19 18:46 Temperature 98.4 F Pulse Rate 71 Respiratory 18 Rate Blood Pressure 116/76 O2 Sat by Pulse 99 Oximetry Medical Decision Making - Medical Decision Making Patient reevaluated and resting comfortably in bed. Abdomen soft and nontender. Patient is receptive to taking a therapist at home with her. Patient does not want enema at this time. Patient refuses any oral treatment at this time. Patient is agreeable with follow-up. - Lab Data Result diagrams: 08/21/19 19:30 08/21/19 19:30 Lab Results 08/21/19 08/21/19 08/21/19 Range/Units 19:30 19:30 19:30 WBC 5.5 (3.8-10.6) k/uL RBC 4.74 (3.80-5.40) m/uL Hgb 14.0 (11.4-16.0) gm/dL Hct 41.4 (34.0-46.0) % MCV 87.4 (80.0-100.0) fL MCH 29.4 (25.0-35.0) pg MCHC 33.7 (31.0-37.0) g/dL RDW 12.0 (11.5-15.5) % Plt Count 347 (150-450) k/uL Neutrophils % 48 % Lymphocytes % 44 % Monocytes % 5 % Eosinophils % 1 % Basophils % 1 % Neutrophils # 2.6 (1.3-7.7) k/uL Lymphocytes # 2.4 (1.0-4.8) k/uL Monocytes # 0.3 (0-1.0) k/uL Eosinophils # 0.0 (0-0.7) k/uL Basophils # 0.0 (0-0.2) k/uL PT 9.4 (9.0-12.0) sec INR 0.9 (<1.2) APTT 22.6 (22.0-30.0) sec Sodium 134 L (137-145) mmol/L Potassium 4.0 (3.5-5.1) mmol/L Chloride 98 (98-107) mmol/L Carbon Dioxide 27 (22-30) mmol/L Anion Gap 9 mmol/L BUN 10 (7-17) mg/dL Creatinine 0.67 (0.52-1.04) mg/dL Est GFR (CKD-EPI)AfAm >90 (>60 ml/min/1.73 sqM) Est GFR (CKD-EPI)NonAf >90 (>60 ml/min/1.73 sqM) Glucose 107 H (74-99) mg/dL Calcium 9.4 (8.4-10.2) mg/dL Total Bilirubin 0.4 (0.2-1.3) mg/dL AST 22 (14-36) U/L ALT 13 (4-34) U/L Alkaline Phosphatase 70 (38-126) U/L Total Protein 7.9 (6.3-8.2) g/dL Albumin 4.8 (3.5-5.0) g/dL Amylase 66 (30-110) U/L Lipase 105 (23-300) U/L Urine Color Urine Appearance (Clear) Urine pH (5.0-8.0) Ur Specific [place] (1.001-1.035) Urine Protein (Negative) Urine Glucose (UA) (Negative) Urine Ketones (Negative) Urine Blood (Negative) Urine Nitrite (Negative) Urine Bilirubin (Negative) Urine Urobilinogen (<2.0) mg/dL Ur Leukocyte Esterase (Negative) Urine RBC (0-5) /hpf Urine WBC (0-5) /hpf Ur Squamous Epith Cells (0-4) /hpf Urine Bacteria (None) /hpf Urine Mucus (None) /hpf Urine HCG, Qual (Not Detectd) 08/21/19 08/21/19 Range/Units 19:45 19:45 WBC (3.8-10.6) k/uL RBC (3.80-5.40) m/uL Hgb (11.4-16.0) gm/dL Hct (34.0-46.0) % MCV (80.0-100.0) fL MCH (25.0-35.0) pg MCHC (31.0-37.0) g/dL RDW (11.5-15.5) % Plt Count (150-450) k/uL Neutrophils % % Lymphocytes % % Monocytes % % Eosinophils % % Basophils % % Neutrophils # (1.3-7.7) k/uL Lymphocytes # (1.0-4.8) k/uL Monocytes # (0-1.0) k/uL Eosinophils # (0-0.7) k/uL Basophils # (0-0.2) k/uL PT (9.0-12.0) sec INR (<1.2) APTT (22.0-30.0) sec Sodium (137-145) mmol/L Potassium (3.5-5.1) mmol/L Chloride (98-107) mmol/L Carbon Dioxide (22-30) mmol/L Anion Gap mmol/L BUN (7-17) mg/dL Creatinine (0.52-1.04) mg/dL Est GFR (CKD-EPI)AfAm (>60 ml/min/1.73 sqM) Est GFR (CKD-EPI)NonAf (>60 ml/min/1.73 sqM) Glucose (74-99) mg/dL Calcium (8.4-10.2) mg/dL Total Bilirubin (0.2-1.3) mg/dL AST (14-36) U/L ALT (4-34) U/L Alkaline Phosphatase (38-126) U/L Total Protein (6.3-8.2) g/dL Albumin (3.5-5.0) g/dL Amylase (30-110) U/L Lipase (23-300) U/L Urine Color Yellow Urine Appearance Cloudy H (Clear) Urine pH 6.0 (5.0-8.0) Ur Specific [place] 1.024 (1.001-1.035) Urine Protein Trace H (Negative) Urine Glucose (UA) Negative (Negative) Urine Ketones Negative (Negative) Urine Blood Negative (Negative) Urine Nitrite Negative (Negative) Urine Bilirubin Negative (Negative) Urine Urobilinogen 2.0 (<2.0) mg/dL Ur Leukocyte Esterase Small H (Negative) Urine RBC 1 (0-5) /hpf Urine WBC 7 H (0-5) /hpf Ur Squamous Epith Cells 8 H (0-4) /hpf Urine Bacteria Occasional H (None) /hpf Urine Mucus Many H (None) /hpf Urine HCG, Qual Not Detected (Not Detectd) - Radiology Data Radiology results: report reviewed (Computed tomography scan of the abdomen pelvis shows fecal stasis. Normal appendix.) Disposition Clinical Impression: Abdominal pain Disposition: HOME SELF-CARE Condition: Stable Instructions (If sedation given, give patient instructions): Abdominal Pain (ED) Additional Instructions: Please follow-up with primary care physician in the next day or 2 for recheck. Please also follow-up with her surgeon and ripsaw grader. Return for increased pain, fevers, worsening or changing symptoms or other concerns. Over -the-counter Metamucil. Is patient prescribed a controlled substance at d/c from ED?: No Referrals: Rosie Martin DO [Primary Care Provider] - 1-2 days Elysia Massey MD [STAFF PHYSICIAN] - 1-2 days Carmen Joseph MD [STAFF PHYSICIAN] - 1-2 days Time of Disposition: 20:54
[2019-08-21 19:38] LABS: Basophils % (A) 1 %; Eosinophils % (A) 1 %; HCT 41.4 % (34.0-46.0); Lymphocytes # (A) 2.4 k/uL (1.0-4.8); Lymphocytes % (A) 44 %; MCH 29.4 pg (25.0-35.0); MCHC 33.7 g/dL (31.0-37.0); MCV 87.4 fL (80.0-100.0); Mean Platelet Volume 6.7; Monocytes # (A) 0.3 k/uL (0-1.0); Monocytes % (A) 5 %; Neutrophils # (A) 2.6 k/uL (1.3-7.7); Neutrophils % (A) 48 %; Platelet Count 347 k/uL (150-450); RBC 4.74 m/uL (3.80-5.40); WBC 5.5 k/uL (3.8-10.6)
[2019-08-21 19:47] LABS: ALT 13 U/L (4-34); AST 22 U/L (14-36); African American GFR (CKD) >90 (>60 ml/min/1.73 sqM); Albumin 4.8 g/dL (3.5-5.0); Alkaline Phosphatase 70 U/L (38-126); Amylase 66 U/L (30-110); Anion Gap 9 mmol/L; Blood Urea Nitrogen 10 mg/dL (7-17); Calcium 9.4 mg/dL (8.4-10.2); Carbon Dioxide 27 mmol/L (22-30); Chloride 98 mmol/L (98-107); Glucose 107 mg/dL (74-99); INR 0.9 (<1.2); Lipase 105 U/L (23-300); Non-African American GFR(CKD) >90 (>60 ml/min/1.73 sqM); Partial Thromboplastin Time 22.6 sec (22.0-30.0); Prothrombin Time 9.4 sec (9.0-12.0); Sodium 134 mmol/L (137-145); Total Bilirubin 0.4 mg/dL (0.2-1.3); Total Protein 7.9 g/dL (6.3-8.2)
[2019-08-21 20:02] LABS: Appearance,Urine Cloudy (Clear); Bacteria,Urine Occasional /hpf; Bilirubin,Urine Negative (Negative); Blood,Urine Negative (Negative); Color,Urine Yellow; Glucose,Urine (UA) Negative (Negative); Ketones,Urine Negative (Negative); Leukocyte Esterase,Urine Small (Negative); Mucus,Urine Many /hpf; Nitrite,Urine Negative (Negative); Protein,Urine Trace (Negative); RBC,Urine 1 /hpf (0-5); Specific Gravity,Urine 1.024 (1.001-1.035); Squamous Epithelial Cell,Urine 8 /hpf (0-4); WBC,Urine 7 /hpf (0-5)
[2019-08-21] MEDS ORDERED: HYDROmorphone 1 MG/ML 1 ML SYRINGE IVP STA (20:09)
--- NOTE | 2019-08-21 20:45 | CT ---
EXAMINATION TYPE: CT abdomen pelvis w con DATE OF EXAM: 08/21/2019 COMPARISON: Prior CT 08/15/2019 HISTORY: RLQ PAIN CT DLP: 667.6 mGycm Automated exposure control for dose reduction was used. TECHNIQUE: Helical acquisition of images from the lung bases through the pelvis have been completed. CONTRAST: Performed without Oral Contrast and with IV Contrast, patient injected with 100 mL of Isovue 300. FINDINGS: LUNG BASES: No significant abnormality is appreciated. AORTA: No significant abnormality is appreciated. LIVER/GB: No significant abnormality is appreciated. PANCREAS: No significant abnormality is seen. SPLEEN: No significant abnormality is seen. ADRENALS: No significant abnormality is seen. KIDNEYS: No significant abnormality is seen. REPRODUCTIVE ORGANS: No significant abnormality is seen BOWEL: Small duodenal diverticulum suspected at the head of the pancreas level, air densities presen t near the distal common bile duct. Appendix is normal. Large amount of retained fecal debris present within the colon. FREE AIR: No Free Air visible. ASCITES: None visible. PELVIC ADENOPATHY: None visualized. RETROPERITONEAL ADENOPATHY: No Retroperitoneal Adenopathy visible. URINARY BLADDER: No significant abnormality is seen. OSSEOUS STRUCTURES: No significant abnormality is seen. IMPRESSION: CORRELATE FOR FECAL STASIS. APPENDICITIS IS NOT EVIDENT.
[2019-08-21] MEDS ORDERED: DOCUSATE 283 MG/5 ML ENEMA RECTAL STA (20:53)
[2019-08-21 21:56] VITALS: BP 117/78; PULSE 68; TEMP 97.9
== END 2019-08-21 21:45 | disposition home or self-care (01) ==
LOC: EC 18:44
DX: R10.31 Right lower quadrant pain (principal); K21.9 Gastro-esophageal reflux disease without esophagitis; Z79.899 Other long term (current) drug therapy
CPT/HCPCS: 36415; 80053; 82150; 83690; 85025; 85610; 85730; 81001; 81025; 74177; 99285; 96374; 96375 ×3; 96361 ×2; J2270; J2405; J1170; Q9967

== ENCOUNTER → 2019-08-29 | Outpatient (CLI) | payer OTHER ==
--- NOTE | 2019-08-29 10:08 | FL ---
EXAMINATION: Cervical and Thoracic Esophagram DATE OF EXAM: 08/29/2019 CLINICAL INDICATION: 33-year-old female R13.10, dysphagia, unspecified. Patient reports a hiatal manuel ia seen on endoscopy one year ago. History of worsening GERD over the last month. COMPARISON: None Total Fluoroscopy Time: 1 minute 19 seconds Total images: 35 FINDINGS: The swallowing mechanism is normal and hypopharyngeal anatomy is preserved. The cervical and thoracic portions have a normal course and caliber and normal motility. The mucosa is normal and no persistent filling defect is encountered. Some images show a tiny sliding hiatal hernia. Gastroesophageal reflux could not be elicited with Marla daniel or positional maneuvers at this time. IMPRESSION: 1. A tiny sliding hiatal hernia seen on a couple of the images. 2. Gastroesophageal reflux could not be elicited during the course of the exam. This does not exclude its possibility. 3. Otherwise, unremarkable esophagram.
== END | disposition home or self-care (01) ==
LOC: RADUSWWP 08:45
PROVIDERS: ATTEND Surgery Plastic and Reconstructive Surgery
DX: K44.9 Diaphragmatic hernia without obstruction or gangrene (principal); K21.9 Gastro-esophageal reflux disease without esophagitis
CPT/HCPCS: 74220

== ENCOUNTER 2019-09-03 08:34 | Day surgery (SDC) | payer OTHER ==
[2019-08-28 15:22] VITALS: BMI 23.1
--- NOTE | 2019-09-03 08:23 | P.GSHP ---
History of Present Illness H&P Date: 09/03/19 CHIEF COMPLAINT: GERD HISTORY OF PRESENT ILLNESS: The patient is a 33-year-old female who presents reports gastroesophageal reflux disease. Upper endoscopy was offered for further evaluation and management. PAST MEDICAL HISTORY: Please see list. PAST SURGICAL HISTORY: Please see list. MEDICATIONS: Please see list. ALLERGIES: Please see list. SOCIAL HISTORY: No illicit drug use FAMILY HISTORY: No reports of Crohn disease or ulcerative colitis. REVIEW OF ORGAN SYSTEMS: CONSTITUTIONAL: No reports of fevers or chills. GI: Denies any blood in stools or constipation. PHYSICAL EXAM: VITAL SIGNS: Stable GENERAL: Well-developed and pleasant in no acute distress. HEENT: No scleral icterus. Extraocular movements grossly intact. Moist buccal mucosa. NECK: Supple without lymphadenopathy. CHEST: Unlabored respirations. Equal bilateral excursions. CARDIOVASCULAR: Regular rate and rhythm. Distal 2+ pulses. ABDOMEN: Soft, nondistended. MUSCULOSKELETAL: No clubbing, cyanosis, or edema. ASSESSMENT: 1. Gastroesophageal reflux disease PLAN: 1. Recommend proceeding with an upper endoscopy Past Medical History Past Medical History: Asthma, GERD/Reflux, Skin Disorder Additional Past Medical History / Comment(s): eczema, migraines, hx vertigo, IBS/diarrhea, Hiatal hernia, chest pain d/t gerd, frequent uination with some lower abdominal pain at times History of Any Multi-Drug Resistant Organisms: None Reported Additional Past Surgical History / Comment(s): WISDOM TOOTH. Colonoscopy,EGD Past Anesthesia/Blood Transfusion Reactions: No Reported Reaction Smoking Status: Former smoker - Past Family History Mother Family Medical History: No Reported History Medications and Allergies Home Medications Medication Instructions Recorded Confirmed Type Pseudoephedrine 12Hr [Sudafed 12 1 tab PO DAILY 04/28/17 08/28/19 History Hour] Cetirizine HCl [Zyrtec] 10 mg PO DAILY 05/15/18 08/28/19 History Famotidine [Pepcid AC] 20 mg PO BID PRN 08/21/19 08/28/19 History Albuterol Inhaler [Ventolin Hfa 1 puff INHALATION DIRECTED PRN 08/28/19 08/28/19 History Inhaler] Cannabidiol (Cbd) [Epidiolex] 0 mg PO DIRECTED PRN 08/28/19 08/28/19 History Levalbuterol Inhaler 1 - 2 puff IH DIRECTED PRN 08/28/19 08/28/19 History Norethindrone AC-Eth Estradiol 1 tab PO 2030 08/28/19 08/28/19 History [Loestrin 21 1-20 Tablet] Pantoprazole [Protonix] 40 mg PO BID 08/28/19 08/28/19 History Allergies Allergy/AdvReac Type Severity Reaction Status Date / Time adhesive tape Allergy red skin Verified 08/28/19 15:08 and swelling
[2019-09-03 09:07] VITALS: TEMP 98.5
[2019-09-03] MEDS ORDERED: LIDOCAINE 1% (10MG/ML) FOR IV START INTRADERMA ONE (09:07)
[2019-09-03] MEDS ORDERED: PROPOFOL 10 MG/ML 20 ML VIAL IV ONE (09:47)
--- NOTE | 2019-09-03 10:02 | P.PCN ---
Date of Procedure: 09/03/19 Description of Procedure: PREOPERATIVE DIAGNOSIS: Gastroesophageal reflux disease. POSTOPERATIVE DIAGNOSIS: Gastritis. Gastroesophageal reflux disease. Diaphragmatic hiatal hernia OPERATION: Esophagogastroduodenoscopy with biopsies along antrum. SURGEON: Elysia Massey MD ANESTHESIA: MAC. INDICATIONS: The patient is a 33-year-old female who presents with a history of reflux disease. Benefits and risks of the procedure were described. Informed consent was obtained. DESCRIPTION: The patient was brought into the endoscopy suite and laid in the left lateral decubitus position. An Olympus gastroscope was passed along the posterior oropharynx down to the distal esophagus where the squamocolumnar junction was encountered at 34 cm from the incisors. The stomach was entered and no bile reflux was found. Additional findings are listed below. Biopsies with cold forceps were obtained of the antrum. The first through third portion of the duodenum was examined and unremarkable. Retroflexion of the scope confirmed Hill grade 4 lower esophageal valve. The squamocolumnar junction demonstrated LA grade B erosive esophagitis. The stomach was desufflated. The patient tolerated the procedure well. FINDINGS: Squamocolumnar junction 34 cm from the incisors. Diaphragmatic hiatus at 37 cm. Hiatal hernia, 3 cm Hill grade 4 lower esophageal valve. LA grade B erosive esophagitis. No active duodenitis. Chronic gastritis RECOMMENDATIONS: Upper endoscopy as needed. Plan - Discharge Summary New Discharge Prescriptions: Continue Pseudoephedrine 12Hr [Sudafed 12 Hour] 1 tab PO DAILY Cetirizine HCl [Zyrtec] 10 mg PO DAILY Famotidine [Pepcid AC] 20 mg PO BID PRN PRN Reason: Heartburn Norethindrone AC-Eth Estradiol [Loestrin 21 1-20 Tablet] 1 tab PO 2030 Pantoprazole [Protonix] 40 mg PO BID Levalbuterol Inhaler 1 - 2 puff IH DIRECTED PRN PRN Reason: sob Albuterol Inhaler [Ventolin Hfa Inhaler] 1 puff INHALATION DIRECTED PRN PRN Reason: sob Cannabidiol (Cbd) [Epidiolex] 0 mg PO DIRECTED PRN PRN Reason: Pain Discharge Medication List Pseudoephedrine 12Hr [Sudafed 12 Hour] 1 tab PO DAILY 04/28/17 [History] Cetirizine HCl [Zyrtec] 10 mg PO DAILY 05/15/18 [History] Famotidine [Pepcid AC] 20 mg PO BID PRN 08/21/19 [History] Albuterol Inhaler [Ventolin Hfa Inhaler] 1 puff INHALATION DIRECTED PRN 08/28/19 [History] Cannabidiol (Cbd) [Epidiolex] 0 mg PO DIRECTED PRN 08/28/19 [History] Levalbuterol Inhaler 1 - 2 puff IH DIRECTED PRN 08/28/19 [History] Norethindrone AC-Eth Estradiol [Loestrin 21 1-20 Tablet] 1 tab PO 2030 08/28/19 [History] Pantoprazole [Protonix] 40 mg PO BID 08/28/19 [History] Follow up Appointment(s)/Referral(s): Elysia Massey MD [STAFF PHYSICIAN] - 09/11/19 Patient Instructions/Handouts: Hiatal Hernia (DC) Discharge Disposition: HOME SELF-CARE
[2019-09-03 10:32] VITALS: BP 123/80; PULSE 60; RESP 18
== END 2019-09-03 10:41 | disposition home or self-care (01) ==
LOC: ORWHC2ENDO 08:34
PROVIDERS: ATTEND Surgery Plastic and Reconstructive Surgery
DX: K21.0 Gastro-esophageal reflux disease with esophagitis (principal); K22.10 Ulcer of esophagus without bleeding; K29.50 Unspecified chronic gastritis without bleeding; K44.9 Diaphragmatic hernia without obstruction or gangrene; J45.909 Unspecified asthma, uncomplicated; L30.9 Dermatitis, unspecified; G43.909 Migraine, unspecified, not intractable, without status migrainosus; K58.0 Irritable bowel syndrome with diarrhea; Z98.890 Other specified postprocedural states; Z87.891 Personal history of nicotine dependence; Z79.899 Other long term (current) drug therapy; Z79.3 Long term (current) use of hormonal contraceptives; Z91.09 Other allergy status, other than to drugs and biological substances
CPT/HCPCS: 81025; 88305; 43239; J2704

== ENCOUNTER → 2019-09-04 | Outpatient (CLI) | payer OTHER ==
--- NOTE | 2019-09-04 07:32 | US ---
EXAMINATION TYPE: US gallbladder DATE OF EXAM: 09/04/2019 COMPARISON: CT 08/21/2019 CLINICAL HISTORY: K81.1 Chronic cholecystitis. Pain EXAM MEASUREMENTS: Liver Length: 12.4 cm Gallbladder Wall: .2 cm CBD: .4 cm Right Kidney: 10.1 x 3.5 x 4.0 cm Pancreas: Tail obscured by overlying bowel gas Liver: wnl Gallbladder: wnl Evidence for sonographic Elkins's sign: No CBD: wnl Right Kidney: wnl , the cortical measured differentiation is maintained IMPRESSION: No evident abnormality
== END | disposition home or self-care (01) ==
LOC: RADUSWWP 07:05
PROVIDERS: ATTEND Surgery Plastic and Reconstructive Surgery
DX: K81.1 Chronic cholecystitis (principal)
CPT/HCPCS: 76705

== ENCOUNTER → 2019-09-08 | Outpatient (CLI) | payer OTHER ==
--- NOTE | 2019-09-08 09:11 | NM ---
EXAMINATION TYPE: NM hepatobiliary w EF DATE OF EXAM: 09/08/2019 COMPARISON: Gallbladder ultrasound 3 days ago. HISTORY: Dysphasia per order. Symptoms of pain with diminished appetite heartburn and reflux and naus ea per patient. TECHNIQUE: After the intravenous administration of 4 mCi Tc 99m Mebrofenin hepatobiliary scintigraphy is performed. Immediate images post injection. FINDINGS: There is satisfactory initial accumulation of tracer by the liver. The gallbladder is visualized wit hin 15 minutes. The small bowel activity is noted within 30 minutes. At one hour 8 ounces of oral e nsure plus is given to mimic CCK and gallbladder ejection fraction is calculated at 49 %, in the norm al range. Therefore there is no scintigraphic evidence of cystic or common bile duct obstruction to suggest acute cholecystitis or gallbladder dyskinesia. IMPRESSION: Exam is within normal limits.
== END | disposition home or self-care (01) ==
LOC: RADNMMAIN 07:08
PROVIDERS: ATTEND Surgery Plastic and Reconstructive Surgery
DX: K81.1 Chronic cholecystitis (principal)
CPT/HCPCS: 78226; A9537

== ENCOUNTER → 2019-09-23 | Outpatient (CLI) | payer OTHER ==
[2019-09-23 15:25] LABS: Basophils % (A) 1 %; Eosinophils # (A) 0.1 k/uL (0-0.7); Eosinophils % (A) 1 %; HCT 41.4 % (34.0-46.0); HGB 13.2 gm/dL (11.4-16.0); Lymphocytes # (A) 2.5 k/uL (1.0-4.8); Lymphocytes % (A) 44 %; MCHC 31.8 g/dL (31.0-37.0); MCV 88.1 fL (80.0-100.0); Mean Platelet Volume 6.9; Monocytes # (A) 0.2 k/uL (0-1.0); Monocytes % (A) 4 %; Neutrophils # (A) 2.8 k/uL (1.3-7.7); Neutrophils % (A) 48 %; Platelet Count 334 k/uL (150-450); RDW 12.3 % (11.5-15.5); WBC 5.7 k/uL (3.8-10.6)
== END | disposition home or self-care (01) ==
LOC: LABPAT 14:05
PROVIDERS: ATTEND Surgery Plastic and Reconstructive Surgery
DX: Z01.818 Encounter for other preprocedural examination (principal); K80.20 Calculus of gallbladder without cholecystitis without obstruction
CPT/HCPCS: 85025

== ENCOUNTER 2019-09-29 06:21 | Day surgery (SDC) | payer OTHER ==
[2019-09-23 10:12] VITALS: BMI 23.1
--- NOTE | 2019-09-29 06:15 | P.GSHP ---
History of Present Illness H&P Date: 09/29/19 CHIEF COMPLAINT: Cholecystitis HISTORY OF PRESENT ILLNESS: The patient is a 33-year-old female who presents with history of epigastric including right upper quadrant abdominal pain. She underwent diagnostic studies for her gallbladder. Separately her clinical picture was consistent with cholecystitis. Now she presents for surgical intervention. PAST MEDICAL HISTORY: Please see list PAST SURGICAL HISTORY: Please see list MEDICATIONS: Please see list ALLERGIES: Please see list SOCIAL HISTORY: Please see list FAMILY HISTORY: Please see list REVIEW OF ORGAN SYSTEMS: CONSTITUTIONAL: No reports of fevers or chills. PHYSICAL EXAM: VITAL SIGNS: Afebrile vital signs stable GENERAL: Well-developed pleasant in no acute distress. HEENT: No scleral icterus. Extraocular movements grossly intact. Moist buccal mucosa. NECK: Supple without lymphadenopathy. CHEST: Unlabored respirations. Equal bilateral excursions. CARDIOVASCULAR: Regular rate regular rhythm rhythm. Distal 2+ pulses. ABDOMEN: Soft, nondistended. Tender along the epigastrium and right upper quadrant. MUSCULOSKELETAL: No clubbing, cyanosis, or edema. NEURO: Cranial nerves II to XII within normal limits. No focal or lateralizing signs. PSYCH: Alert and oriented to person, place and time. SKIN: Well-perfused good skin turgor. ASSESSMENT: 1. Epigastric and right upper quadrant abdominal pain 2. Chronic cholecystitis PLAN: 1. Will need a robotic cholecystectomy possible open. Benefits and risks were described. 2. Heparin for DVT prophylaxis 5000 units. 3. Antibiotic prophylaxis. Past Medical History Past Medical History: Asthma, GERD/Reflux, Skin Disorder Additional Past Medical History / Comment(s): eczema, migraines, hx vertigo.IBS, Hiatal hernia History of Any Multi-Drug Resistant Organisms: None Reported Additional Past Surgical History / Comment(s): WISDOM TEETH. Colonoscopy , EGD Past Anesthesia/Blood Transfusion Reactions: No Reported Reaction Smoking Status: Former smoker - Past Family History Mother Family Medical History: No Reported History Medications and Allergies Home Medications Medication Instructions Recorded Confirmed Type Pseudoephedrine 12Hr [Sudafed 12 1 tab PO DAILY 04/28/17 09/23/19 History Hour] Cetirizine HCl [Zyrtec] 10 mg PO DAILY 05/15/18 09/23/19 History Famotidine [Pepcid AC] 20 mg PO BID PRN 08/21/19 09/23/19 History Albuterol Inhaler [Ventolin Hfa 1 puff INHALATION DIRECTED PRN 08/28/19 09/23/19 History Inhaler] Cannabidiol (Cbd) [Epidiolex] 0 mg PO DIRECTED PRN 08/28/19 09/23/19 History Levalbuterol Inhaler 1 - 2 puff IH DIRECTED PRN 08/28/19 09/23/19 History Norethindrone AC-Eth Estradiol 1 tab PO 2030 08/28/19 09/23/19 History [Loestrin 21 1-20 Tablet] Omeprazole [PriLOSEC] 20 mg PO AC-BID 09/23/19 09/23/19 History Allergies Allergy/AdvReac Type Severity Reaction Status Date / Time adhesive tape Allergy red skin Verified 09/23/19 09:57 and swelling
[~2019-09-29 06:21] MED LIST changes: +ACETAMINOPHEN TAB 500 MG TAB PO STA; +DEXAMETHASONE SOD PHOSPHATE 10 MG/ML 1 ML VIAL IV ONE; +GABAPENTIN 300 MG CAP PO STA; +HEPARIN SODIUM,PORCINE 5,000 UNIT/ML 1 ML VIAL SQ ONE; +LIDOCAINE 1% (10MG/ML) FOR IV START INTRADERMA PRN; +ONDANSETRON 4 MG/2 ML VIAL IVP ONE; +SCOPOLAMINE 1.5MG/72HR PATCH TRANSDERM ONE
[2019-09-29] MEDS ORDERED: INDOCYANINE GREEN 25 MG VIAL IV ONE ×2 (06:30→07:43)
[2019-09-29 06:51] VITALS: RESP 16; TEMP 98.4
[2019-09-29] MEDS ORDERED: ONDANSETRON 4 MG/2 ML VIAL ONE ×2 (07:04→07:43)
[2019-09-29] MEDS ORDERED: ACETAMINOPHEN TAB 500 MG TAB ONE (07:04)
[2019-09-29] MEDS ORDERED: HEPARIN SODIUM,PORCINE 5,000 UNIT/ML 1 ML VIAL ONE (07:04)
[2019-09-29] MEDS ORDERED: LIDOCAINE 1%-EPI 1:100,000 20 ML VIAL SQ ONE ×2 (07:25→08:08)
[2019-09-29] MEDS ORDERED: KETOROLAC 30 MG/ML 1 ML VIAL ONE (07:43)
[2019-09-29] MEDS ORDERED: ROCURONIUM BROMIDE 10 MG/ML 5 ML VIAL IV ONE (07:43)
[2019-09-29] MEDS ORDERED: GLYCOPYRROLATE 0.2 MG/ML 2 ML VIAL ONE (07:43)
[2019-09-29] MEDS ORDERED: SUCCINYLCHOLINE CHLORIDE 100 MG/5 ML SYR IV ONE (07:43)
[2019-09-29] MEDS ORDERED: NEOSTIGMINE 1 MG/ML 10 ML VIAL ONE (07:43)
[2019-09-29] MEDS ORDERED: PROPOFOL 10 MG/ML 20 ML VIAL IV ONE (07:43)
[2019-09-29] MEDS ORDERED: LIDOCAINE 1% INJ 10MG/ML (20 ML MDV) ONE (07:43)
[2019-09-29] MEDS ORDERED: MIDAZOLAM 2 MG/2 ML VIAL ONE (07:43)
[2019-09-29] MEDS ORDERED: fentaNYL (PF) 50 MCG/ML 2 ML AMP ONE (07:43)
[2019-09-29] MEDS ORDERED: LACTATED RINGERS 1,000 ML IV ONE (08:41)
[2019-09-29] MEDS ORDERED: KETOROLAC 15 MG/ML 1 ML VIAL IVP PRN (09:00)
--- NOTE | 2019-09-29 09:06 | P.OP ---
Date of Procedure: 09/29/19 Description of Procedure: SURGEON: ELYSIA MASSEY MD PREOPERATIVE DIAGNOSES: 1. Chronic cholecystitis 2. Gastroesophageal reflux 3. Irritable bowel syndrome 4. Migraines 5. Depressive disorder POSTOPERATIVE DIAGNOSES: 1. Chronic cholecystitis 2. Gastroesophageal reflux 3. Irritable bowel syndrome 4. Migraines 5. Depressive disorder OPERATION: Robotic-assisted da Cristino Xi laparoscopic cholecystectomy, multiport with FIREFLY ESTIMATED BLOOD LOSS: 10 mL. SPECIMENS REMOVED: Gallbladder. COMPLICATIONS: None. OPERATIVE FINDINGS: 1. Highly redundant ascending colon and cecum extending above the bladder to deep pelvis. 3. Chronic cholecystitis INDICATIONS: The patient is a 33-year-old female who presents with epigastric right upper quadrant dull pain with gallbladder disorder. Robotic assisted laparoscopic approach was described. Benefits and risks of the procedure including but not limited to bleeding, infection, injury to the biliary tree was described. Informed consent was obtained. DESCRIPTION OF PROCEDURE: Patient was brought to the operating room, placed in supine position. After general induction, the abdomen had been prepped and draped in standard sterile fashion. The robotic da Cristino XI system was primed. After a timeout protocol was performed, the patient had been prepped and draped in standard sterile fashion. The patient was injected with indocyanine green. A 5 mm 0 degrees laparoscopic trocar entry was performed along the left upper quadrant. The abdomen insufflated to 15 mmHg pressure which was tolerated well. Diagnostic laparoscopy demonstrated no injury to bowel viscera or mesentery. The liver surface was unremarkable. Next, two 8 mm robotic ports were placed along the right upper abdomen. The camera 8-mm port was maintained along the epigastrium. Another 8 mm port was placed along the left upper abdominal wall after exchanging the 5 mm port. Please note that the ports were placed at least 10 to 15 cm away from the target anatomy of the gallbladder. The robot was docked along the left lateral abdomen. The patient was repositioned in reverse Trendelenburg position. Using a grasper for arm 3, a grasper for arm 4, including hook cautery for arm 1, the robotic system was docked and primed as described. Instruments were interchanged by the fleet assistant including hook cautery, Bovie cautery and clip appliers. I had sat at the console. The gallbladder fundus was retracted over the dome of the liver. Initial attention was brought to the infundibulum including cystic lymph node. Initial dissection was performed over the cystic lymph node at the infundibulum using hook cautery. The infundibulum was retracted laterally to expose the cystic duct away from the common bile duct. The cystic duct including the cystic artery were dissected free from its surrounding tissue. FIREFLY was used to identify the cystic artery and cystic structures. A critical view of safety was obtained. Large PLASTIC clips were used throughout the entire case. Using a clip dogger, 2 clips were placed at the junction of the infundibulum and cystic duct. The cystic duct was divided between clips. Next, the cystic artery was similarly clipped and cauterized. Electro-Bovie cautery was used to remove the gallbladder from the hepatic fossa. Hemostasis was checked and found to be adequate. The robot was undocked. I re-scrubbed into the case. Using a 10 mm Endo Catch bag via the left upper quadrant incision, the specimen was removed from the abdominal cavity. All pneumoperitoneum instruments were evacuated from the abdominal cavity. The incisions were reapproximated using 4-0 Monocryl in an interrupted subcuticular fashion. Fascial defects were less than 8 mm in size. Please note along the trocar sites, local anesthetic was placed as a field block prior to insertion of all instruments. Liquid glue was applied to the skin. At the end of the procedure needle, sponge, and instrument count had been verified correct by the surgical aides teacher. The patient was transferred to postanesthesia care unit in stable condition. Intraoperative films were shared with the patient's family who were pleased with the level of care. Plan - Discharge Summary Discharge Rx Participant: Yes New Discharge Prescriptions: Continue Pseudoephedrine 12Hr [Sudafed 12 Hour] 1 tab PO DAILY Cetirizine HCl [Zyrtec] 10 mg PO DAILY Famotidine [Pepcid AC] 20 mg PO BID PRN PRN Reason: Heartburn Norethindrone AC-Eth Estradiol [Loestrin 21 1-20 Tablet] 1 tab PO 2030 Levalbuterol Inhaler 1 - 2 puff IH DIRECTED PRN PRN Reason: sob Albuterol Inhaler [Ventolin Hfa Inhaler] 1 puff INHALATION DIRECTED PRN PRN Reason: sob Cannabidiol (Cbd) [Epidiolex] 0 mg PO DIRECTED PRN PRN Reason: Pain Omeprazole [PriLOSEC] 20 mg PO AC-BID Discharge Medication List Pseudoephedrine 12Hr [Sudafed 12 Hour] 1 tab PO DAILY 04/28/17 [History] Cetirizine HCl [Zyrtec] 10 mg PO DAILY 05/15/18 [History] Famotidine [Pepcid AC] 20 mg PO BID PRN 08/21/19 [History] Albuterol Inhaler [Ventolin Hfa Inhaler] 1 puff INHALATION DIRECTED PRN 08/28/19 [History] Cannabidiol (Cbd) [Epidiolex] 0 mg PO DIRECTED PRN 08/28/19 [History] Levalbuterol Inhaler 1 - 2 puff IH DIRECTED PRN 08/28/19 [History] Norethindrone AC-Eth Estradiol [Loestrin 21 1-20 Tablet] 1 tab PO 2030 08/28/19 [History] Omeprazole [PriLOSEC] 20 mg PO AC-BID 09/23/19 [History] Follow up Appointment(s)/Referral(s): Elysia Massey MD [STAFF PHYSICIAN] - 10/07/19 Patient Instructions/Handouts: Laparoscopic Cholecystectomy (DC), Low Fat Diet (DC), *[facility] - Managing Your Pain After Surgery Without Opioids Activity/Diet/Wound Care/Special Instructions: No lifting over 10 pounds in 2 weeks until Oct 19. May shower. No bath tub soaks for two weeks until Oct 19. Diet as tolerated. Use Tylenol and ibuprofen/Aleve scheduled for the next 24-48 hours for best pain relief. Use ice along incisions for the today to prevent swelling. Discharge Disposition: HOME SELF-CARE
[2019-09-29] MEDS: HYDROmorphone 0.5 MG/0.5 ML SYRINGE IVP PRN ×3 (09:07→09:19)
[2019-09-29 11:28] VITALS: BP 100/63; PULSE 69
== END 2019-09-29 11:37 | disposition home or self-care (01) ==
LOC: OR 06:21
PROVIDERS: ATTEND Surgery Plastic and Reconstructive Surgery
DX: K81.1 Chronic cholecystitis (principal); K21.9 Gastro-esophageal reflux disease without esophagitis; K58.9 Irritable bowel syndrome, unspecified; J45.909 Unspecified asthma, uncomplicated; L30.9 Dermatitis, unspecified; K44.9 Diaphragmatic hernia without obstruction or gangrene; F32.9 Major depressive disorder, single episode, unspecified; Z86.69 Personal history of other diseases of the nervous system and sense organs; Z91.040 Latex allergy status; Z98.890 Other specified postprocedural states; Z87.891 Personal history of nicotine dependence; Z79.899 Other long term (current) drug therapy; Z79.3 Long term (current) use of hormonal contraceptives; Z91.09 Other allergy status, other than to drugs and biological substances
CPT/HCPCS: 47562; S2900; 81025; 88304

== ENCOUNTER 2019-10-10 16:38 | Emergency (ER) | payer OTHER ==
[2019-10-10 16:42] VITALS: TEMP 98.2
--- NOTE | 2019-10-10 16:49 | ED ---
Abdominal Pain HPI - General Chief Complaint: Abdominal Pain Stated Complaint: abd pain Time Seen by Provider: 10/10/19 16:46 Source: patient Mode of arrival: ambulatory Limitations: no limitations - History of Present Illness Initial Comments: Patient is a 33-year-old female presenting to the emergency department with a chief complaint of abdominal pain. Patient reports she's been having these symptoms since August. The pain has been coming and going in the right lower quadrant region with occasional radiation to her right flank. States that pain is burning/sharp in nature. States in August she was evaluated for appendicitis but it was not detected. Patient reports about 3 weeks ago she had a cholecystectomy and has been recovering well. Today her pain in the right lower quadrant region is worse than usual. She denies any nausea vomiting diarrhea. Denies any night sweats fevers or chills. Denies hematuria, hematochezia or melena. Denies any urinary or vaginal symptoms. No alleviating or aggravating factors. No chest pain shortness of breath. - Related Data Home Medications Medication Instructions Recorded Confirmed Pseudoephedrine 12Hr [Sudafed 12 1 tab PO DAILY 04/28/17 09/29/19 Hour] Cetirizine HCl [Zyrtec] 10 mg PO DAILY 05/15/18 09/29/19 Famotidine [Pepcid AC] 20 mg PO BID PRN 08/21/19 09/29/19 Albuterol Inhaler [Ventolin Hfa 1 puff INHALATION DIRECTED PRN 08/28/1909/28 Inhaler] Cannabidiol (Cbd) [Epidiolex] 0 mg PO DIRECTED PRN 08/28/19 09/29/19 Levalbuterol Inhaler 1 - 2 puff IH DIRECTED PRN 08/28/19 09/29/19 Norethindrone AC-Eth Estradiol 1 tab PO 2030 08/28/19 09/29/19 [Loestrin 21 1-20 Tablet] Omeprazole [PriLOSEC] 20 mg PO AC-BID 09/23/19 09/29/19 Previous Rx's Medication Instructions Recorded Acetaminophen Tab [Tylenol Tab] 1,000 mg PO Q6HR PRN #30 tablet 09/29/19 Ibuprofen [Motrin] 600 mg PO Q8HR PRN #30 tab 09/29/19 Allergies Allergy/AdvReac Type Severity Reaction Status Date / Time adhesive tape Allergy red skin Verified 10/10/19 16:42 and swelling Review of Systems ROS Statement: Those systems with pertinent positive or pertinent negative responses have been documented in the HPI. ROS Other: All systems not noted in ROS Statement are negative. Past Medical History Past Medical History: Asthma, GERD/Reflux, Skin Disorder Additional Past Medical History / Comment(s): eczema, migraines, hx vertigo.IBS, Hiatal hernia History of Any Multi-Drug Resistant Organisms: None Reported Past Surgical History: Cholecystectomy Additional Past Surgical History / Comment(s): WISDOM TEETH. Colonoscopy , EGD Past Anesthesia/Blood Transfusion Reactions: No Reported Reaction Past Psychological History: Depression Smoking Status: Former smoker Past Alcohol Use History: None Reported Past Drug Use History: None Reported - Past Family History Mother Family Medical History: No Reported History General Exam Limitations: no limitations General appearance: alert, in no apparent distress Head exam: Present: atraumatic, normocephalic, normal inspection Eye exam: Present: normal appearance, PERRL, EOMI Pupils: Present: normal accommodation ENT exam: Present: normal exam, normal oropharynx, mucous membranes moist, TM's normal bilaterally, normal external ear exam Neck exam: Present: normal inspection, full ROM. Absent: tenderness Respiratory exam: Present: normal lung sounds bilaterally. Absent: respiratory distress, wheezes Cardiovascular Exam: Present: regular rate, normal rhythm, normal heart sounds GI/Abdominal exam: Present: soft, tenderness (Impression flank, right lower candi drant. Negative psoas sign, Rovsing, obturator sign.). Absent: distended, guarding, rebound, rigid Extremities exam: Present: normal inspection, full ROM, normal capillary refill, other (+2 ulnar and radial pulses bilaterally.). Absent: tenderness Back exam: Present: normal inspection, full ROM. Absent: tenderness, CVA tenderness (R), CVA tenderness (L) Neurological exam: Present: alert, oriented X3 Psychiatric exam: Present: normal affect, normal mood Skin exam: Present: warm, dry, intact, normal color Course Vital Signs 10/10/19 16:40 Temperature 98.2 F Pulse Rate 80 Respiratory 20 Rate Blood Pressure 139/85 O2 Sat by Pulse 99 Oximetry Medical Decision Making - Medical Decision Making Patient is a 33-year-old female presenting to the emergency room with a chief complaint abdominal pain. Exam patient does appear to have some right flank and right lower quadrant abdominal pain. Negative psoas sign, Rovsing, obturator sign. CBC and CMP are unremarkable. UA shows small elevation in white blood cells and leukocyte esterase. Patient is not symptomatically for UTI and will not be treated. She is not . She does not have any vaginal symptoms. Recent imaging reviewed of the CT abdomen and pelvis from August which showed no signs of appendicitis. Patient was evaluated for appendicitis back then as well in the ED. The symptoms have been ongoing since then with on and off pattern. Shared decision making was discussed with patient regarding CT imaging of her abdomen and pelvis, she declined. States that she is going to see her surgeon, Dr. Amaya, before proceeding to any imaging studies. Patient will be discharged with Tylenol 3 starter pack and advised not to drive or operate heavy machinery when taking medication. Strict return parameters were thoroughly discussed with patient was understanding and agreeable. Case discussed with physician. - Lab Data Result diagrams: 10/10/19 17:21 10/10/19 17:21 Lab Results 10/10/19 10/10/19 10/10/19 Range/Units 17:21 17:21 17:21 WBC 6.0 (3.8-10.6) k/uL RBC 4.70 (3.80-5.40) m/uL Hgb 13.6 (11.4-16.0) gm/dL Hct 40.8 (34.0-46.0) % MCV 86.8 (80.0-100.0) fL MCH 28.9 (25.0-35.0) pg MCHC 33.3 (31.0-37.0) g/dL RDW 12.1 (11.5-15.5) % Plt Count 328 (150-450) k/uL Neutrophils % 47 % Lymphocytes % 43 % Monocytes % 6 % Eosinophils % 1 % Basophils % 1 % Neutrophils # 2.9 (1.3-7.7) k/uL Lymphocytes # 2.6 (1.0-4.8) k/uL Monocytes # 0.3 (0-1.0) k/uL Eosinophils # 0.1 (0-0.7) k/uL Basophils # 0.0 (0-0.2) k/uL Sodium 135 L (137-145) mmol/L Potassium 4.0 (3.5-5.1) mmol/L Chloride 101 (98-107) mmol/L Carbon Dioxide 25 (22-30) mmol/L Anion Gap 9 mmol/L BUN 11 (7-17) mg/dL Creatinine 0.63 (0.52-1.04) mg/dL Est GFR (CKD-EPI)AfAm >90 (>60 ml/min/1.73 sqM) Est GFR (CKD-EPI)NonAf >90 (>60 ml/min/1.73 sqM) Glucose 105 H (74-99) mg/dL Calcium 9.5 (8.4-10.2) mg/dL Total Bilirubin 0.3 (0.2-1.3) mg/dL AST 21 (14-36) U/L ALT 12 (4-34) U/L Alkaline Phosphatase 69 (38-126) U/L Total Protein 7.2 (6.3-8.2) g/dL Albumin 4.0 (3.5-5.0) g/dL Amylase 60 (30-110) U/L Lipase 90 (23-300) U/L Urine Color Yellow Urine Appearance Cloudy H (Clear) Urine pH 6.0 (5.0-8.0) Ur Specific [place] 1.020 (1.001-1.035) Urine Protein Trace H (Negative) Urine Glucose (UA) Negative (Negative) Urine Ketones Negative (Negative) Urine Blood Trace H (Negative) Urine Nitrite Negative (Negative) Urine Bilirubin Negative (Negative) Urine Urobilinogen <2.0 (<2.0) mg/dL Ur Leukocyte Esterase Small H (Negative) Urine RBC 3 (0-5) /hpf Urine WBC 11 H (0-5) /hpf Ur Squamous Epith Cells 19 H (0-4) /hpf Amorphous Sediment Rare H (None) /hpf Hyaline Casts 1 (0-2) /lpf Urine Mucus Few H (None) /hpf Urine HCG, Qual (Not Detectd) 10/10/19 Range/Units 17:52 WBC (3.8-10.6) k/uL RBC (3.80-5.40) m/uL Hgb (11.4-16.0) gm/dL Hct (34.0-46.0) % MCV (80.0-100.0) fL MCH (25.0-35.0) pg MCHC (31.0-37.0) g/dL RDW (11.5-15.5) % Plt Count (150-450) k/uL Neutrophils % % Lymphocytes % % Monocytes % % Eosinophils % % Basophils % % Neutrophils # (1.3-7.7) k/uL Lymphocytes # (1.0-4.8) k/uL Monocytes # (0-1.0) k/uL Eosinophils # (0-0.7) k/uL Basophils # (0-0.2) k/uL Sodium (137-145) mmol/L Potassium (3.5-5.1) mmol/L Chloride (98-107) mmol/L Carbon Dioxide (22-30) mmol/L Anion Gap mmol/L BUN (7-17) mg/dL Creatinine (0.52-1.04) mg/dL Est GFR (CKD-EPI)AfAm (>60 ml/min/1.73 sqM) Est GFR (CKD-EPI)NonAf (>60 ml/min/1.73 sqM) Glucose (74-99) mg/dL Calcium (8.4-10.2) mg/dL Total Bilirubin (0.2-1.3) mg/dL AST (14-36) U/L ALT (4-34) U/L Alkaline Phosphatase (38-126) U/L Total Protein (6.3-8.2) g/dL Albumin (3.5-5.0) g/dL Amylase (30-110) U/L Lipase (23-300) U/L Urine Color Urine Appearance (Clear) Urine pH (5.0-8.0) Ur Specific [place] (1.001-1.035) Urine Protein (Negative) Urine Glucose (UA) (Negative) Urine Ketones (Negative) Urine Blood (Negative) Urine Nitrite (Negative) Urine Bilirubin (Negative) Urine Urobilinogen (<2.0) mg/dL Ur Leukocyte Esterase (Negative) Urine RBC (0-5) /hpf Urine WBC (0-5) /hpf Ur Squamous Epith Cells (0-4) /hpf Amorphous Sediment (None) /hpf Hyaline Casts (0-2) /lpf Urine Mucus (None) /hpf Urine HCG, Qual Not Detected (Not Detectd) Disposition Clinical Impression: Abdominal pain Disposition: HOME SELF-CARE Condition: Good Instructions (If sedation given, give patient instructions): Abdominal Pain (ED) Additional Instructions: Follow-up with . Return to emergency department if symptoms worsen. Do not drive or operate heavy machinery when taking a medication. Is patient prescribed a controlled substance at d/c from ED?: No Referrals: Rosie Martin DO [Primary Care Provider] - 1-2 days Time of Disposition: 18:44
[2019-10-10] MEDS ORDERED: Acetaminophen-Codeine 300-30mg TAB PO STA (16:58)
[2019-10-10] MEDS ORDERED: SODIUM CHLORIDE 0.9% 1,000 ML IV STA (16:58)
[2019-10-10] MEDS ORDERED: PANTOPRAZOLE 40 MG/10 ML VIAL IVP STA (16:58)
[2019-10-10 17:38] LABS: Basophils % (A) 1 %; Eosinophils # (A) 0.1 k/uL (0-0.7); Eosinophils % (A) 1 %; HCT 40.8 % (34.0-46.0); HGB 13.6 gm/dL (11.4-16.0); Lymphocytes # (A) 2.6 k/uL (1.0-4.8); Lymphocytes % (A) 43 %; MCH 28.9 pg (25.0-35.0); MCHC 33.3 g/dL (31.0-37.0); MCV 86.8 fL (80.0-100.0); Mean Platelet Volume 6.7; Monocytes # (A) 0.3 k/uL (0-1.0); Monocytes % (A) 6 %; Neutrophils # (A) 2.9 k/uL (1.3-7.7); Neutrophils % (A) 47 %; Platelet Count 328 k/uL (150-450); RDW 12.1 % (11.5-15.5)
[2019-10-10 17:46] LABS: ALT 12 U/L (4-34); AST 21 U/L (14-36); African American GFR (CKD) >90 (>60 ml/min/1.73 sqM); Alkaline Phosphatase 69 U/L (38-126); Amylase 60 U/L (30-110); Anion Gap 9 mmol/L; Blood Urea Nitrogen 11 mg/dL (7-17); Calcium 9.5 mg/dL (8.4-10.2); Carbon Dioxide 25 mmol/L (22-30); Chloride 101 mmol/L (98-107); Glucose 105 mg/dL (74-99); Lipase 90 U/L (23-300); Non-African American GFR(CKD) >90 (>60 ml/min/1.73 sqM); Sodium 135 mmol/L (137-145); Total Bilirubin 0.3 mg/dL (0.2-1.3); Total Protein 7.2 g/dL (6.3-8.2)
[2019-10-10 17:56] LABS: Amorphous Sediment,Urine Rare /hpf; Appearance,Urine Cloudy (Clear); Bilirubin,Urine Negative (Negative); Blood,Urine Trace (Negative); Color,Urine Yellow; Glucose,Urine (UA) Negative (Negative); Hyaline Casts,Urine 1 /lpf (0-2); Ketones,Urine Negative (Negative); Leukocyte Esterase,Urine Small (Negative); Mucus,Urine Few /hpf; Nitrite,Urine Negative (Negative); Protein,Urine Trace (Negative); RBC,Urine 3 /hpf (0-5); Squamous Epithelial Cell,Urine 19 /hpf (0-4); Urobilinogen,Urine <2.0 mg/dL (<2.0); WBC,Urine 11 /hpf (0-5)
[2019-10-10] MEDS ORDERED: ACET/COD 300 MG/30 MG STARTER PACK 6 TAB BTL PO STA (18:44)
[2019-10-10 19:04] VITALS: BP 119/75; PULSE 64; RESP 18
== END 2019-10-10 19:01 | disposition home or self-care (01) ==
LOC: EC 16:38
DX: R10.31 Right lower quadrant pain (principal); R82.998 Other abnormal findings in urine; J45.909 Unspecified asthma, uncomplicated; K21.9 Gastro-esophageal reflux disease without esophagitis; K58.9 Irritable bowel syndrome, unspecified; Z79.3 Long term (current) use of hormonal contraceptives; Z79.51 Long term (current) use of inhaled steroids; Z79.899 Other long term (current) drug therapy; Z87.891 Personal history of nicotine dependence; Z91.048 Other nonmedicinal substance allergy status; Z87.19 Personal history of other diseases of the digestive system; Z90.49 Acquired absence of other specified parts of digestive tract; Z98.890 Other specified postprocedural states
CPT/HCPCS: 36415; 80053; 82150; 83690; 85025; 81001; 81025; 87086; 99284; 96374; 96361; C9113

== ENCOUNTER 2019-11-06 08:18 | Day surgery (SDC) | payer OTHER ==
[2019-11-03 11:56] VITALS: BMI 23.1
--- NOTE | 2019-11-06 06:45 | P.GSHP ---
History of Present Illness H&P Date: 11/06/19 CHIEF COMPLAINT: Change in bowel habits HISTORY OF PRESENT ILLNESS: The patient is a 34-year-old female who presents for colon screen. Lower endoscopy was offered for further evaluation and management. PAST MEDICAL HISTORY: Please see list. PAST SURGICAL HISTORY: Please see list. MEDICATIONS: Please see list. ALLERGIES: Please see list. SOCIAL HISTORY: No illicit drug use FAMILY HISTORY: No reports of Crohn disease or ulcerative colitis. REVIEW OF ORGAN SYSTEMS: CONSTITUTIONAL: No reports of fevers or chills. PHYSICAL EXAM: VITAL SIGNS: Stable GENERAL: Well-developed pleasant in no acute distress. HEENT: No scleral icterus. Extraocular movements grossly intact. Moist buccal mucosa. NECK: Supple without lymphadenopathy. CHEST: Unlabored respirations. Equal bilateral excursions. CARDIOVASCULAR: Regular rate and rhythm. Distal 2+ pulses. ABDOMEN: Soft, nontender, nondistended. MUSCULOSKELETAL: No clubbing, cyanosis, or edema. ASSESSMENT: 1. Change in bowel habits PLAN: 1. Recommend proceeding with a lower endoscopy Past Medical History Past Medical History: Asthma, GERD/Reflux, Skin Disorder Additional Past Medical History / Comment(s): eczema, migraines, hx vertigo.IBS, Hiatal hernia History of Any Multi-Drug Resistant Organisms: None Reported Past Surgical History: Cholecystectomy Additional Past Surgical History / Comment(s): WISDOM TEETH. Colonoscopy , EGD Past Anesthesia/Blood Transfusion Reactions: No Reported Reaction Smoking Status: Former smoker - Past Family History Mother Family Medical History: No Reported History Medications and Allergies Home Medications Medication Instructions Recorded Confirmed Type Pseudoephedrine 12Hr [Sudafed 12 1 tab PO DAILY 04/28/17 11/03/19 History Hour] Cetirizine HCl [Zyrtec] 10 mg PO DAILY 05/15/18 11/03/19 History Famotidine [Pepcid AC] 20 mg PO BID PRN 08/21/19 11/03/19 History Albuterol Inhaler [Ventolin Hfa 1 puff INHALATION DIRECTED PRN 08/28/19 11/03/19 History Inhaler] Cannabidiol (Cbd) [Epidiolex] 0 mg PO DIRECTED PRN 08/28/19 11/03/19 History Levalbuterol Inhaler 1 - 2 puff IH DIRECTED PRN 08/28/19 11/03/19 History Norethindrone AC-Eth Estradiol 1 tab PO 2030 08/28/19 11/03/19 History [Loestrin 21 1-20 Tablet] Omeprazole [PriLOSEC] 20 mg PO AC-BID 09/23/19 11/03/19 History Acetaminophen Tab [Tylenol Tab] 1,000 mg PO Q6HR PRN #30 tablet 09/29/19 11/03/19 Rx Ibuprofen [Motrin] 600 mg PO Q8HR PRN #30 tab 09/29/19 11/03/19 Rx Allergies Allergy/AdvReac Type Severity Reaction Status Date / Time adhesive tape Allergy red skin Verified 11/03/19 11:45 and swelling
[~2019-11-06 08:18] MED LIST changes: -ACETAMINOPHEN TAB 500 MG TAB PO STA; -DEXAMETHASONE SOD PHOSPHATE 10 MG/ML 1 ML VIAL IV ONE; -GABAPENTIN 300 MG CAP PO STA; -HEPARIN SODIUM,PORCINE 5,000 UNIT/ML 1 ML VIAL SQ ONE; -LIDOCAINE 1% (10MG/ML) FOR IV START INTRADERMA PRN; -ONDANSETRON 4 MG/2 ML VIAL IVP ONE; -SCOPOLAMINE 1.5MG/72HR PATCH TRANSDERM ONE
[2019-11-06 08:56] VITALS: RESP 16; TEMP 97.9
[2019-11-06 09:09] LABS: Glucose,Whole Blood 82 mg/dL (75-99)
[2019-11-06] MEDS ORDERED: PROPOFOL 10 MG/ML 20 ML VIAL IV ONE (09:36)
[2019-11-06 10:19] VITALS: BP 109/62; PULSE 71
--- NOTE | 2019-11-06 11:26 | P.PCN ---
Date of Procedure: 11/06/19 Description of Procedure: PREOPERATIVE DIAGNOSIS: Change in bowel habits Colitis Diarrhea Abdominal pain, generalized POSTOPERATIVE DIAGNOSIS: Change in bowel habits Colitis Diarrhea Abdominal pain, generalized OPERATION: Colonoscopy to the cecum/ileocecal valve Colonoscopy with random biopsies, cold forceps for microscopic colitis SURGEON: Elysia Massey MD. ANESTHESIA: MAC. INDICATIONS: The patient is a 34-year-old female who presents with change in bowel habits, diarrhea, colitis. Benefits and risks were described and informed consent was obtained. DESCRIPTION OF PROCEDURE: The patient had undergone Gatorade, MiraLAX and Dulcolax prep. She had been brought into the operating room and laid in the left lateral decubitus position. After adequate intravenous sedation, the rectum was examined with 2% lidocaine jelly. No external hemorrhoids were encountered. The rectal tone was within normal limits. No lesions were palpated in the rectal vault. An Olympus colonoscope was advanced to the ileocecal valve/cecum The prep was good. No scattered diverticulosis was encountered. No colonic polyps were found. Random cold forceps biopsies were obtained for microscopic colitis. Retroflexion of the scope demonstrated grade 1 internal hemorrhoids without active bleeding or inflammation. The colon was desufflated. The patient had tolerated the procedure well. Withdrawal time was over 6 minutes. FINDINGS: Aronchick preparation quality scale 2 (1-5) Internal hemorrhoids, grade 1 No external prolapsed hemorrhoids. No arteriovenous malformations. No adenomatous polyps. No scattered diverticulosis Random biopsies for microscopic colitis RECOMMENDATIONS: Lower endoscopy as needed Plan - Discharge Summary Discharge Rx Participant: Yes New Discharge Prescriptions: Continue Pseudoephedrine 12Hr [Sudafed 12 Hour] 1 tab PO DAILY Cetirizine HCl [Zyrtec] 10 mg PO DAILY Famotidine [Pepcid AC] 20 mg PO BID PRN PRN Reason: Heartburn Norethindrone AC-Eth Estradiol [Loestrin 21 1-20 Tablet] 1 tab PO 2030 Levalbuterol Inhaler 1 - 2 puff IH DIRECTED PRN PRN Reason: sob Albuterol Inhaler [Ventolin Hfa Inhaler] 1 puff INHALATION DIRECTED PRN PRN Reason: sob Cannabidiol (Cbd) [Epidiolex] 0 mg PO DIRECTED PRN PRN Reason: Pain Omeprazole [PriLOSEC] 20 mg PO AC-BID Ibuprofen [Motrin] 600 mg PO Q8HR PRN #30 tab PRN Reason: Pain Acetaminophen Tab [Tylenol] 1,000 mg PO Q6HR PRN #30 tablet PRN Reason: Pain Discharge Medication List Pseudoephedrine 12Hr [Sudafed 12 Hour] 1 tab PO DAILY 04/28/17 [History] Cetirizine HCl [Zyrtec] 10 mg PO DAILY 05/15/18 [History] Famotidine [Pepcid AC] 20 mg PO BID PRN 08/21/19 [History] Albuterol Inhaler [Ventolin Hfa Inhaler] 1 puff INHALATION DIRECTED PRN 08/28/19 [History] Cannabidiol (Cbd) [Epidiolex] 0 mg PO DIRECTED PRN 08/28/19 [History] Levalbuterol Inhaler 1 - 2 puff IH DIRECTED PRN 08/28/19 [History] Norethindrone AC-Eth Estradiol [Loestrin 21 1-20 Tablet] 1 tab PO 2030 08/28/19 [History] Omeprazole [PriLOSEC] 20 mg PO AC-BID 09/23/19 [History] Acetaminophen Tab [Tylenol] 1,000 mg PO Q6HR PRN #30 tablet 09/29/19 [Rx] Ibuprofen [Motrin] 600 mg PO Q8HR PRN #30 tab 09/29/19 [Rx] Follow up Appointment(s)/Referral(s): Elysia Massey MD [STAFF PHYSICIAN] - 11/18/19 Patient Instructions/Handouts: *[facility] - (Anesthesia) Endoscopy Discharge Instructions, Colonoscopy (DC) Discharge Disposition: HOME SELF-CARE
== END 2019-11-06 10:57 | disposition home or self-care (01) ==
LOC: ORWHC2ENDO 08:18
PROVIDERS: ATTEND Surgery Plastic and Reconstructive Surgery
DX: R19.4 Change in bowel habit (principal); R10.84 Generalized abdominal pain; R19.7 Diarrhea, unspecified; K64.0 First degree hemorrhoids; Z87.19 Personal history of other diseases of the digestive system; K21.9 Gastro-esophageal reflux disease without esophagitis; G43.909 Migraine, unspecified, not intractable, without status migrainosus; K58.9 Irritable bowel syndrome, unspecified; K44.9 Diaphragmatic hernia without obstruction or gangrene; J45.909 Unspecified asthma, uncomplicated; Z90.49 Acquired absence of other specified parts of digestive tract; Z98.890 Other specified postprocedural states; Z87.891 Personal history of nicotine dependence; Z79.890 Hormone replacement therapy; Z79.899 Other long term (current) drug therapy; Z91.09 Other allergy status, other than to drugs and biological substances
CPT/HCPCS: 81025; 88305; 45380; J2704

== ENCOUNTER → 2020-04-05 | Outpatient (CLI) | payer OTHER ==
--- NOTE | 2020-04-06 04:18 | MR ---
EXAMINATION TYPE: MR hand RT wo con DATE OF EXAM: 04/05/2020 COMPARISON: 02/04/2019 HISTORY: RT hand pain, limited movement, hx of injury Multiplanar multiecho imaging of the right hand was performed without contrast. The carpal bones are intact. Metacarpals are intact. The fingers and thumb appear intact. I see no ev idence of a fracture. There is no evidence of bony destructive process. Intercarpal joint spaces are fairly normal. There is some increased fluid signal anterior to the mid carpus. This area measures 12 mm and this could relate to developing ganglion cyst. There is slight i ncreased joint fluid at the carpus. IMPRESSION: Slight increased carpal joint fluid signal that could relate to mild synovitis unchanged compared to old exam. Soft tissue small area of increased signal anteriorly that could be developing ganglion cyst and is a change compared to old exam.
== END ==
LOC: RADMRIMAIN 16:30
PROVIDERS: ATTEND Orthopaedic Surgery Hand Surgery
DX: M79.641 Pain in right hand (principal)

== ENCOUNTER 2020-10-02 08:16 | Emergency (ER) | payer OTHER ==
--- NOTE | 2020-10-02 09:09 | ED ---
Extremity Problem HPI - General Chief complaint: Extremity Problem,Nontraumatic Stated complaint: Blurred vision, neck & back pain Time Seen by Provider: 10/02/20 08:28 Source: patient, RN notes reviewed Mode of arrival: ambulatory Limitations: no limitations - History of Present Illness Initial comments: This a 34-year-old female presents emergency Department chief complaint of severe arm pain. Patient states been suffering with right-sided states that she's now been having left-sided arm pain since Sunday. Patient states that she has seen neurologist and orthopedics in the past. She's had no prior imaging of her back but states it seems similar up into her primary or neck. She states that she has some visual changes other day but has no complaints now no headache no pressure. Patient states that she does not have any weakness. Patient denies any trauma no other complaints. - Related Data Home Medications Medication Instructions Recorded Confirmed Pseudoephedrine 12Hr [Sudafed 12 1 tab PO DAILY 04/28/17 10/02/20 Hour] Cetirizine HCl [Zyrtec] 10 mg PO DAILY 05/15/18 10/02/20 Norethindrone AC-Eth Estradiol 1 tab PO DAILY 08/28/19 10/02/20 [Loestrin 21 1-20 Tablet] Omeprazole [PriLOSEC] 20 mg PO DAILY 09/23/19 10/02/20 Celecoxib [CeleBREX] 200 mg PO BID PRN 10/02/20 10/02/20 Vortioxetine Hydrobromide 10 mg PO DAILY 10/02/20 10/02/20 [Trintellix] tiZANidine [Zanaflex] 2 mg PO HS 10/02/20 10/02/20 Previous Rx's Medication Instructions Recorded predniSONE 50 mg PO DAILY #5 tab 10/02/20 Allergies Allergy/AdvReac Type Severity Reaction Status Date / Time adhesive tape Allergy red skin Verified 10/02/20 09:43 and swelling Review of Systems ROS Statement: Those systems with pertinent positive or pertinent negative responses have been documented in the HPI. ROS Other: All systems not noted in ROS Statement are negative. Past Medical History Past Medical History: Asthma, GERD/Reflux, Skin Disorder Additional Past Medical History / Comment(s): eczema, migraines, hx vertigo.IBS, Hiatal hernia History of Any Multi-Drug Resistant Organisms: None Reported Past Surgical History: Cholecystectomy Additional Past Surgical History / Comment(s): WISDOM TEETH. Colonoscopy , EGD Past Anesthesia/Blood Transfusion Reactions: No Reported Reaction Past Psychological History: Anxiety, Depression Smoking Status: Former smoker Past Alcohol Use History: None Reported Past Drug Use History: None Reported - Past Family History Mother Family Medical History: No Reported History General Exam Limitations: no limitations General appearance: alert, in no apparent distress Head exam: Present: atraumatic, normocephalic, normal inspection Eye exam: Present: normal appearance, PERRL, EOMI. Absent: scleral icterus, conjunctival injection, periorbital swelling ENT exam: Present: normal exam, mucous membranes moist Neck exam: Present: normal inspection, tenderness, full ROM. Absent: meningismus, lymphadenopathy Respiratory exam: Present: normal lung sounds bilaterally. Absent: respiratory distress, wheezes, rales, rhonchi, stridor Cardiovascular Exam: Present: regular rate, normal rhythm, normal heart sounds. Absent: systolic murmur, diastolic murmur, rubs, gallop, clicks Neurological exam: Present: alert Skin exam: Present: warm, dry, intact, normal color. Absent: rash Course Vital Signs 10/02/20 08:21 Temperature 98 F Pulse Rate 94 Respiratory 20 Rate Blood Pressure 118/77 O2 Sat by Pulse 100 Oximetry Medical Decision Making - Medical Decision Making 34-year-old presented for neck pain and radicular symptoms of her arm. 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 Patient does not have any otherwise significant changes mild scoliosis. Patient we given his dose steroids, pain control with follow-up with spine return parameters were discussed. Disposition Clinical Impression: Cervical radiculopathy Disposition: HOME SELF-CARE Condition: Stable Instructions (If sedation given, give patient instructions): Cervical Radiculopathy (ED) Additional Instructions: Please return to the Emergency Department if symptoms worsen or any other concerns. Prescriptions: predniSONE 50 mg PO DAILY #5 tab Is patient prescribed a controlled substance at d/c from ED?: No Referrals: Rosie Martin DO [Primary Care Provider] - 1-2 days Armen Harrison DO [Doctor of Osteopathic Medicine] - 1-2 days Time of Disposition: 09:53
--- NOTE | 2020-10-02 09:48 | CT ---
EXAMINATION TYPE: CT cervical spine wo con DATE OF EXAM: 10/02/2020 COMPARISON: No plain film performed HISTORY: bilateral arm pain radiating to neck, more on the Rt CT DLP: 374.7 mGycm Automated exposure control for dose reduction was used. TECHNIQUE: CT scan of the cervical spine is obtained without contrast, axial images are obtained, sagittal and c oronal reformatted images are also reviewed. 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 Cervical spine is visualized in its entirety from C1 through upper thoracic levels, demonstrates sati sfactory alignment without evidence of acute fracture or dislocation. No spinal stenosis or foramina l encroachment, disc herniation not evident. There is a spinal curvature present. Prevertebral soft t issue appears within normal limits. The C1-C2 articulation is within normal limits on the coronal im ages. IMPRESSION: There is no acute fracture or dislocation evident in the cervical spine. Scoliosis. Additional findin gs above.
[2020-10-02] MEDS: ACET/COD 300 MG/30 MG STARTER PACK 6 TAB BTL PO STA (10:07)
[2020-10-02 10:11] VITALS: BP 122/83; PULSE 80; RESP 16; TEMP 97.8
== END 2020-10-02 10:17 | disposition home or self-care (01) ==
LOC: EC 08:16
DX: M54.12 Radiculopathy, cervical region (principal); M79.602 Pain in left arm; M79.601 Pain in right arm; J45.909 Unspecified asthma, uncomplicated; K21.9 Gastro-esophageal reflux disease without esophagitis; G43.909 Migraine, unspecified, not intractable, without status migrainosus; F32.9 Major depressive disorder, single episode, unspecified; F41.9 Anxiety disorder, unspecified; Z87.891 Personal history of nicotine dependence
CPT/HCPCS: 72125; 99283

== ENCOUNTER → 2021-03-18 | Outpatient (CLI) | payer OTHER ==
--- NOTE | 2021-03-18 09:46 | MR ---
EXAMINATION TYPE: MR cervical spine wo/w con DATE OF EXAM: 03/18/2021 COMPARISON: CT cervical spine 10/02/2020 HISTORY: Muscle tightness in neck, Pain and numbness rt side down into arm TECHNIQUE: Multiplanar, multisequence images of the cervical spine were acquired without contrast and with 7.5 m L intravenous Gadavist gadolinium contrast. C2-C3: No evidence for degenerative disc disease. No disc bulge/herniation or protrusion. No Canal stenosis. Foramina are patent bilaterally. C3-C4: No evidence for degenerative disc disease. No disc bulge/herniation or protrusion. No Canal stenosis. Foramina are patent bilaterally. C4-C5: No evidence for degenerative disc disease. No disc bulge/herniation or protrusion. No Canal stenosis. Foramina are patent bilaterally. C5-C6: No evidence for degenerative disc disease. No disc bulge/herniation or protrusion. No Canal stenosis. Foramina are patent bilaterally. C6-C7: No evidence for degenerative disc disease. No disc bulge/herniation or protrusion. No Canal stenosis. Foramina are patent bilaterally. C7-T1: No evidence for degenerative disc disease. No disc bulge/herniation or protrusion. No Canal stenosis. Foramina are patent bilaterally. Cervical segments are intact. There is normal alignment. Cervical spinal cord is of normal signal. Craniovertebral junction relationships are within normal limits. Cervical vertebral bodies show pre served height and alignment. There is no significant spinal stenosis. Slight spinal curvature is pres ent. No abnormal enhancement. IMPRESSION: Slight spinal curvature. No evident disc herniation or foraminal encroachment.
== END | disposition home or self-care (01) ==
LOC: RADMRIMAIN 08:11
PROVIDERS: ATTEND Family Medicine
DX: M43.8X2 Other specified deforming dorsopathies, cervical region (principal)
CPT/HCPCS: 72156; A9585

== ENCOUNTER → 2021-05-03 | Outpatient (CLI) | payer OTHER ==
[2021-05-04 01:38] LABS: Rheumatoid Factor, Qnt <10 IU/mL (0-15)
[2021-05-04 12:51] LABS: Anti-DNA, DS unit <1.0 IU/mL; Anti-Smith Ab Interp NEGATIVE (NEGATIVE); Cyclic Citrull Pep IgG Unit 0.6 U/mL; Cyclic Citrullinated Pep IgG NEGATIVE (NEGATIVE); DNA Double-Stranded NEGATIVE (NEGATIVE); JO-1 IgG Antibody <0.2 AI; Scleroderma SC-70 Ab <0.2 AI
== END | disposition home or self-care (01) ==
LOC: LABWHC1 15:14
PROVIDERS: ATTEND Nurse Practitioner Family
DX: M25.50 Pain in unspecified joint (principal)
CPT/HCPCS: 36415; 83516; 86038; 86140; 86200; 86225; 86235; 86431

== ENCOUNTER → 2022-06-23 | Outpatient (CLI) | payer OTHER ==
--- NOTE | 2022-06-23 10:30 | XR ---
EXAMINATION TYPE: XR pelvis AP view, XR Hip Bilateral Complete, XR sacrum coccyx DATE OF EXAM: 06/23/2022 CLINICAL HISTORY: Pelvic and bilateral hip and sacral pain. TECHNIQUE: A single AP view of the pelvis is obtained. Two views of the bilateral hips are obtained. 2 views of the sacrum and coccyx. COMPARISON: CT abdomen and pelvis August 21, 2019 FINDINGS: There is no acute fracture/dislocation evident in the pelvis. The hip and sacroiliac joints appear s ymmetric and unremarkable. Pubic symphysis is intact. The overlying soft tissue appears unremarkable . 2 views of the sacrum and coccyx show no acute displaced fracture. The sacral alar and maintained karen aterally. Overlying soft tissue is unremarkable. Two views of bilateral hips show no acute fracture or dislocation. No focal lytic or sclerotic lesio n seen in the proximal femurs bilaterally. Femoral head shapes are maintained bilaterally. The overly ing soft tissue is unremarkable. IMPRESSION: Unremarkable studies.
--- NOTE | 2022-06-23 10:31 | XR ---
EXAMINATION TYPE: XR lumbosacral spine min 4V DATE OF EXAM: 06/23/2022 CLINICAL HISTORY: Low back pain. TECHNIQUE: Frontal, lateral, and oblique images of the lumbar spine are obtained. COMPARISON: CT abdomen and pelvis August 21, 2019 FINDINGS: There are 5 lumbar type vertebral bodies redemonstrated. The lumbar spine shows stable an d satisfactory alignment without evidence of acute fracture or dislocation. Vertebral body heights an d disk space heights are within normal limits. The oblique images appear within normal limits. The overlying soft tissue appears unremarkable. IMPRESSION: Unremarkable study. No significant change from prior CT.
== END | disposition home or self-care (01) ==
LOC: RADXRMAIN 09:10
PROVIDERS: ATTEND Neuromusculoskeletal Medicine, Sports Medicine
DX: M54.51 Vertebrogenic low back pain (principal); M53.3 Sacrococcygeal disorders, not elsewhere classified
CPT/HCPCS: 72110; 72170; 72220; 73521

== ENCOUNTER 2023-02-16 09:06 | Emergency (ER) | payer OTHER ==
[2023-02-16] MEDS ORDERED: SODIUM CHLORIDE 0.9% 1,000 ML IV STA (09:12)
[2023-02-16] MEDS ORDERED: KETOROLAC 15 MG/ML 1 ML VIAL IVP STA (09:19)
[2023-02-16] MEDS ORDERED: ONDANSETRON 4 MG/2 ML VIAL IVP STA (09:19)
[2023-02-16] MEDS ORDERED: FAMOTIDINE 20 MG/2 ML VIAL IV STA (09:19)
--- NOTE | 2023-02-16 09:24 | ED ---
Nausea/Vomiting/Diarrhea HPI - General Chief complaint: Nausea/Vomiting/Diarrhea Stated complaint: Vomiting Time Seen by Provider: 02/16/23 09:09 Source: patient, RN notes reviewed Mode of arrival: ambulatory Limitations: no limitations - History of Present Illness Initial comments: This is a 37-year-old female who presents to the emergency department for nausea and vomiting. States that this started yesterday. Reports associated diarrhea. Denies any fevers or chills. Unsure if she's had any sick contacts. She has minor abdominal discomfort from all of the vomiting. Also reports body cramps. States that she's been working with her primary care provider to determine a cause of these body cramps. She was advised that if they happened again, to go to the emergency department for blood work. Believes that a component of these cramps may also be related to dehydration from all the vomiting. MD complaint: nausea, vomiting, diarrhea Onset/Timin -: days(s) - Related Data Home Medications Medication Instructions Recorded Confirmed Pseudoephedrine 12Hr [Sudafed 12 1 tab PO DAILY 04/28/17 10/02/20 Hour] Cetirizine HCl [Zyrtec] 10 mg PO DAILY 05/15/18 10/02/20 norethindrone ac-eth estradioL 1 tab PO DAILY 08/28/19 10/02/20 [Loestrin 21 1-20 Tablet] Omeprazole [PriLOSEC] 20 mg PO DAILY 09/23/19 10/02/20 Celecoxib [CeleBREX] 200 mg PO BID PRN 10/02/20 10/02/20 Vortioxetine Hydrobromide 10 mg PO DAILY 10/02/20 10/02/20 [Trintellix] tiZANidine [Zanaflex] 2 mg PO HS 10/02/20 10/02/20 Previous Rx's Medication Instructions Recorded predniSONE 50 mg PO DAILY #5 tab 10/02/20 Ondansetron Odt [Zofran Odt] 4 mg PO Q8HR PRN #20 tab 02/16/23 Allergies Allergy/AdvReac Type Severity Reaction Status Date / Time adhesive tape Allergy red skin Verified 10/02/20 09:43 and swelling latex Allergy Rash/Hives Verified 02/16/23 09:11 Review of Systems ROS Statement: Those systems with pertinent positive or pertinent negative responses have been documented in the HPI. ROS Other: All systems not noted in ROS Statement are negative. Past Medical History Past Medical History: Asthma, GERD/Reflux, Skin Disorder Additional Past Medical History / Comment(s): eczema, migraines, hx vertigo.IBS, Hiatal hernia History of Any Multi-Drug Resistant Organisms: None Reported Past Surgical History: Cholecystectomy Additional Past Surgical History / Comment(s): WISDOM TEETH. Colonoscopy , EGD Past Anesthesia/Blood Transfusion Reactions: No Reported Reaction Past Psychological History: Anxiety, Depression Smoking Status: Former smoker Past Alcohol Use History: None Reported Past Drug Use History: None Reported - Past Family History Mother Family Medical History: No Reported History General Exam Limitations: no limitations General appearance: alert, in no apparent distress Head exam: Present: atraumatic, normocephalic, normal inspection Respiratory exam: Present: normal lung sounds bilaterally. Absent: respiratory distress, wheezes, rales, rhonchi, stridor Cardiovascular Exam: Present: regular rate, normal rhythm, normal heart sounds. Absent: systolic murmur, diastolic murmur, rubs, gallop, clicks GI/Abdominal exam: Present: soft, normal bowel sounds. Absent: distended, tenderness, guarding, rebound, rigid Neurological exam: Present: alert, oriented X3, CN II-XII intact Psychiatric exam: Present: normal affect, normal mood Skin exam: Present: warm, dry, intact, normal color. Absent: rash Course Vital Signs 02/16/23 02/16/23 02/16/23 09:07 10:29 12:23 Temperature 97.8 F Pulse Rate 121 H 84 92 Respiratory 18 16 18 Rate Blood Pressure 102/82 127/87 120/89 O2 Sat by Pulse 98 100 97 Oximetry Medical Decision Making - Medical Decision Making This is a 37-year-old female who presents to the emergency department for nausea and vomiting. Was pt. sent in by a medical professional or institution? @ -No Did you speak to anyone other than the patient for history? @ -No Did you review nursing and triage notes? @ -Yes, and I agree, it is accurate with regards to the patient's symptoms. Were old charts reviewed? @ -No Differential Diagnosis? @ -Differential Nausea and Vomiting: Gastroenteritis, cholecystitis, appendicitis, pancreatitis, migraine, benign po sitional vertigo, food borne illness, pyelonephritis, irritable bowel syndrome, influenza, Covid, GERD, incarcerated hernia, intestinal obstruction, this is not meant to be an all-inclusive list. EKG interpreted by me (3pts min.)? @ -Not obtained X-rays interpreted by me (1pt min.)? @ -Not obtained CT interpreted by me (1pt min.)? @ -Not obtained U/S interpreted by me (1pt. min.)? @ -Not obtained What testing was considered but not performed? (CT, X-rays, U/S, labs)? Why? @ -None What meds were considered but not given? Why? @ -None Did you discuss the management of the patient with other professionals? @ -No Did you reconcile home meds? @ -No Was smoking cessation discussed for >3mins.? @ -No Was critical care preformed (if so, how long)? @ -No Were there social determinants of health that impacted care today? How? (Homelessness, low income, unemployed, alcoholism, drug addiction, transportation, low edu. Level, literacy, decrease access to med. care, [facility], rehab)? @ -No Was there de-escalation of care discussed even if they declined? (Discuss DNR or withdrawal of care, Hospice)? @ -No What co-morbidities impacted this encounter? (DM, HTN, Smoking, COPD, CAD, Cancer, CVA, Hep., AIDS, mental health diagnosis, sleep apnea, morbid obesity)? @ -None Was patient admitted / discharged? @ -Discharged. Lab work obtained with findings suggestive of mild dehydration and was otherwise unremarkable. Covid, influenza, and RSV testing were negative. Urinalysis consistent with contamination. Her symptoms were well controlled in the emergency department and she was tolerating oral intake. Advised that this may be related to a viral gastroenteritis. Prescription for Zofran provided with dosing instructions reviewed. Advised that she slowly advance her diet as tolerated and remain well-hydrated. Patient discharged home in stable condition. Undiagnosed new problem with uncertain prognosis? @ -None Drug Therapy requiring intensive monitoring for toxicity (Heparin, Nitro, Insulin, Cardizem)? @ -None Were any procedures done? @ -None Diagnosis/symptom? @ -Nausea and vomiting Acute, or Chronic, or Acute on Chronic? @ -Acute Uncomplicated (without systemic symptoms) or Complicated (systemic symptoms)? @ -Uncomplicated Side effects of treatment? @ -None Exacerbation, Progression, or Severe Exacerbation] @ -Not applicable Poses a threat to life or bodily function? @ -No Return precautions reviewed in depth, the patient is instructed to return to the emergency department with any new, worsening, or concerning symptoms. Patient verbalized understanding. This case was discussed in detail with the attending ED physician, Dr. Fallon. Presentation, findings, and treatment plan discussed in detail as well. - Lab Data Result diagrams: 02/16/23 09:29 02/16/23 09:29 Lab Results 02/16/23 02/16/23 02/16/23 Range/Units 09: 09: 09:29 WBC 6.9 (3.8-10.6) k/uL RBC 5.55 H (3.80-5.40) m/uL Hgb 16.1 H (11.4-16.0) gm/dL Hct 47.9 H (34.0-46.0) % MCV 86.3 (80.0-100.0) fL MCH 29.0 (25.0-35.0) pg MCHC 33.6 (31.0-37.0) g/dL RDW 12.6 (11.5-15.5) % Plt Count 401 (150-450) k/uL MPV 6.8 Neutrophils % 79 % Lymphocytes % 15 % Monocytes % 4 % Eosinophils % 1 % Basophils % 0 % Neutrophils # 5.4 (1.3-7.7) k/uL Lymphocytes # 1.1 (1.0-4.8) k/uL Monocytes # 0.3 (0-1.0) k/uL Eosinophils # 0.0 (0-0.7) k/uL Basophils # 0.0 (0-0.2) k/uL Sodium 136 L (137-145) mmol/L Potassium 4.1 (3.5-5.1) mmol/L Chloride 97 L (98-107) mmol/L Carbon Dioxide 22 (22-30) mmol/L Anion Gap 17 mmol/L BUN 20 H (7-17) mg/dL Creatinine 0.60 (0.52-1.04) mg/dL Est GFR (CKD-EPI)AfAm >90 (>60 ml/min/1.73 sqM) Est GFR (CKD-EPI)NonAf >90 (>60 ml/min/1.73 sqM) Glucose 108 H (74-99) mg/dL Calcium 9.7 (8.4-10.2) mg/dL Magnesium 1.9 (1.6-2.3) mg/dL Total Bilirubin 0.7 (0.2-1.3) mg/dL AST 33 (14-36) U/L ALT 26 (4-34) U/L Alkaline Phosphatase 112 (38-126) U/L Total Protein 8.5 H (6.3-8.2) g/dL Albumin 4.6 (3.5-5.0) g/dL Amylase 63 (30-110) U/L Lipase 48 (23-300) U/L Urine Color Urine Appearance (Clear) Urine pH (5.0-8.0) Ur Specific Wyatt (1.001-1.035) Urine Protein (Negative) Urine Glucose (UA) (Negative) Urine Ketones (Negative) Urine Blood (Negative) Urine Nitrite (Negative) Urine Bilirubin (Negative) Urine Urobilinogen (<2.0) mg/dL Ur Leukocyte Esterase (Negative) Urine RBC (0-5) /hpf Urine WBC (0-5) /hpf Ur Squamous Epith Cells (0-4) /hpf Urine Bacteria (None) /hpf Urine Mucus (None) /hpf Urine HCG, Qual (Not Detectd) Influenza Type A (PCR) Not Detected (Not Detectd) Influenza Type B (PCR) Not Detected (Not Detectd) RSV (PCR) Not Detected (Not Detectd) SARS-CoV-2 (PCR) Not Detected (Not Detectd) 02/16/23 02/16/23 Range/Units 10:29 10:29 WBC (3.8-10.6) k/uL RBC (3.80-5.40) m/uL Hgb (11.4-16.0) gm/dL Hct (34.0-46.0) % MCV (80.0-100.0) fL MCH (25.0-35.0) pg MCHC (31.0-37.0) g/dL RDW (11.5-15.5) % Plt Count (150-450) k/uL MPV Neutrophils % % Lymphocytes % % Monocytes % % Eosinophils % % Basophils % % Neutrophils # (1.3-7.7) k/uL Lymphocytes # (1.0-4.8) k/uL Monocytes # (0-1.0) k/uL Eosinophils # (0-0.7) k/uL Basophils # (0-0.2) k/uL Sodium (137-145) mmol/L Potassium (3.5-5.1) mmol/L Chloride (98-107) mmol/L Carbon Dioxide (22-30) mmol/L Anion Gap mmol/L BUN (7-17) mg/dL Creatinine (0.52-1.04) mg/dL Est GFR (CKD-EPI)AfAm (>60 ml/min/1.73 sqM) Est GFR (CKD-EPI)NonAf (>60 ml/min/1.73 sqM) Glucose (74-99) mg/dL Calcium (8.4-10.2) mg/dL Magnesium (1.6-2.3) mg/dL Total Bilirubin (0.2-1.3) mg/dL AST (14-36) U/L ALT (4-34) U/L Alkaline Phosphatase (38-126) U/L Total Protein (6.3-8.2) g/dL Albumin (3.5-5.0) g/dL Amylase (30-110) U/L Lipase (23-300) U/L Urine Color Yellow Urine Appearance Cloudy H (Clear) Urine pH 6.0 (5.0-8.0) Ur Specific Wyatt 1.035 (1.001-1.035) Urine Protein 1+ H (Negative) Urine Glucose (UA) Negative (Negative) Urine Ketones 2+ H (Negative) Urine Blood Large H (Negative) Urine Nitrite Negative (Negative) Urine Bilirubin Negative (Negative) Urine Urobilinogen <2.0 (<2.0) mg/dL Ur Leukocyte Esterase Moderate H (Negative) Urine RBC 13 H (0-5) /hpf Urine WBC 20 H (0-5) /hpf Ur Squamous Epith Cells 34 H (0-4) /hpf Urine Bacteria Rare H (None) /hpf Urine Mucus Many H (None) /hpf Urine HCG, Qual Not Detected (Not Detectd) Influenza Type A (PCR) (Not Detectd) Influenza Type B (PCR) (Not Detectd) RSV (PCR) (Not Detectd) SARS-CoV-2 (PCR) (Not Detectd) Disposition Clinical Impression: Nausea and vomiting Disposition: HOME SELF-CARE Instructions (If sedation given, give patient instructions): Acute Nausea and Vomiting (ED) Additional Instructions: Return to the emergency department with any new, worsening, or concerning symptoms. Alternate with ibuprofen and Tylenol as needed for pain relief. Take the Zofran up to every 8 hours as needed for nausea and vomiting. Slowly advance your diet as tolerated and remain well-hydrated. Follow up with your primary care provider in 1-2 days. Prescriptions: Ondansetron Odt [Zofran Odt] 4 mg PO Q8HR PRN #20 tab PRN Reason: Nausea And Vomiting Is patient prescribed a controlled substance at d/c from ED?: No Referrals: Rosie Martin DO [Primary Care Provider] - 1-2 days
[2023-02-16 09:27] VITALS: TEMP 97.8
[2023-02-16 09:42] LABS: Basophils % (A) 0 %; Eosinophils % (A) 1 %; HCT 47.9 % (34.0-46.0); HGB 16.1 gm/dL (11.4-16.0); Lymphocytes # (A) 1.1 k/uL (1.0-4.8); Lymphocytes % (A) 15 %; MCHC 33.6 g/dL (31.0-37.0); MCV 86.3 fL (80.0-100.0); Mean Platelet Volume 6.8; Monocytes # (A) 0.3 k/uL (0-1.0); Monocytes % (A) 4 %; Neutrophils # (A) 5.4 k/uL (1.3-7.7); Neutrophils % (A) 79 %; Platelet Count 401 k/uL (150-450); RBC 5.55 m/uL (3.80-5.40); RDW 12.6 % (11.5-15.5); WBC 6.9 k/uL (3.8-10.6)
[2023-02-16 09:52] LABS: ALT 26 U/L (4-34); AST 33 U/L (14-36); African American GFR (CKD) >90 (>60 ml/min/1.73 sqM); Albumin 4.6 g/dL (3.5-5.0); Alkaline Phosphatase 112 U/L (38-126); Amylase 63 U/L (30-110); Anion Gap 17 mmol/L; Blood Urea Nitrogen 20 mg/dL (7-17); Calcium 9.7 mg/dL (8.4-10.2); Carbon Dioxide 22 mmol/L (22-30); Chloride 97 mmol/L (98-107); Glucose 108 mg/dL (74-99); Lipase 48 U/L (23-300); Magnesium 1.9 mg/dL (1.6-2.3); Non-African American GFR(CKD) >90 (>60 ml/min/1.73 sqM); Potassium 4.1 mmol/L (3.5-5.1); Sodium 136 mmol/L (137-145); Total Bilirubin 0.7 mg/dL (0.2-1.3); Total Protein 8.5 g/dL (6.3-8.2)
[2023-02-16] MEDS ORDERED: ORPHENADRINE 30 MG/ML 2 ML VIAL IVP STA (10:47)
[2023-02-16 11:01] LABS: Appearance,Urine Cloudy (Clear); Bacteria,Urine Rare /hpf; Bilirubin,Urine Negative (Negative); Blood,Urine Large (Negative); Color,Urine Yellow; Glucose,Urine (UA) Negative (Negative); Ketones,Urine 2+ (Negative); Leukocyte Esterase,Urine Moderate (Negative); Mucus,Urine Many /hpf; Nitrite,Urine Negative (Negative); Protein,Urine 1+ (Negative); RBC,Urine 13 /hpf (0-5); Specific Gravity,Urine 1.035 (1.001-1.035); Squamous Epithelial Cell,Urine 34 /hpf (0-4); Urobilinogen,Urine <2.0 mg/dL (<2.0); WBC,Urine 20 /hpf (0-5)
[2023-02-16] MEDS ORDERED: PROCHLORPERAZINE INJ 10 MG/2 ML VIAL IVP STA (11:54)
[2023-02-16 12:41] VITALS: BP 120/89; PULSE 92; RESP 18
[2023-02-16] MEDS ORDERED: ONDANSETRON 4 MG ODT STARTER PACK 2 TAB BTL PO STA (12:50)
== END 2023-02-16 13:03 | disposition home or self-care (01) ==
LOC: EC 09:06
DX: R11.2 Nausea with vomiting, unspecified (principal); E86.0 Dehydration; J45.909 Unspecified asthma, uncomplicated; K21.9 Gastro-esophageal reflux disease without esophagitis; F41.9 Anxiety disorder, unspecified; F32.A Depression, unspecified; Z20.822 Contact with and (suspected) exposure to COVID-19; Z79.899 Other long term (current) drug therapy; Z91.040 Latex allergy status; Z91.048 Other nonmedicinal substance allergy status; Z87.891 Personal history of nicotine dependence; Z90.49 Acquired absence of other specified parts of digestive tract
CPT/HCPCS: 36415; 80053; 82150; 83690; 83735; 85025; 81001; 81025; 87636; 99284; 96374; 96375 ×4; 96361; J0780; J2360; J2405; J3490; J1885; S0119

== ENCOUNTER 2024-07-13 20:25 | Emergency (ER) | payer OTHER ==
[2024-07-13 21:04] VITALS: RESP 18
--- NOTE | 2024-07-13 21:49 | ED ---
General Adult HPI - General Source: patient, RN notes reviewed, old records reviewed Mode of arrival: ambulatory Limitations: no limitations <Leonela Davison - Last Filed: 07/14/24 00:19> <Gus Mcdonald - Last Filed: 07/21/24 23:19> - General Chief complaint: Abdominal Pain Stated complaint: nvd Time Seen by Provider: 07/13/24 20:36 - History of Present Illness Initial comments: 38-year-old female presents with complaints of abdominal pain nausea vomiting and diarrhea. States in the early hours of this morning she started feeling nauseous and started having diarrhea, states she has had over 10 bowel movements of diarrhea today. Denies any blood in the stool or dark stools. States the nausea has been relatively constant throughout this time, has only vomited a few times has not noticed any blood in the vomit. Abdominal pain feels higher up in the abdomen as well as near her bellybutton. Denies radiation of the pain. States she has tried to eat but is barely able to keep anything down, and has tried to drink as much water as she can but is not been able to have much. (Leonela Davison) - Related Data Home Medications Medication Instructions Recorded Confirmed Pseudoephedrine 12Hr [Sudafed 12 1 tab PO DAILY 04/28/17 10/02/20 Hour] Cetirizine HCl [Zyrtec] 10 mg PO DAILY 05/15/18 10/02/20 norethindrone ac-eth estradioL 1 tab PO DAILY 08/28/19 10/02/20 [Loestrin 21 1-20 Tablet] Omeprazole [PriLOSEC] 20 mg PO DAILY 09/23/19 10/02/20 Celecoxib [CeleBREX] 200 mg PO BID PRN 10/02/20 10/02/20 Vortioxetine Hydrobromide 10 mg PO DAILY 10/02/20 10/02/20 [Trintellix] tiZANidine [Zanaflex] 2 mg PO HS 10/02/20 10/02/20 Previous Rx's Medication Instructions Recorded predniSONE 50 mg PO DAILY #5 tab 10/02/20 Ondansetron Odt [Zofran Odt] 4 mg PO Q8HR PRN #20 tab 02/16/23 Ondansetron Odt [Zofran Odt] 4 mg PO Q8HR PRN #30 tab 07/14/24 Allergies Allergy/AdvReac Type Severity Reaction Status Date / Time adhesive tape Allergy red skin Verified 07/13/24 21:04 and swelling latex Allergy Rash/Hives Verified 07/13/24 21:04 Review of Systems ROS Other: All systems not noted in ROS Statement are negative. <Leonela Davison - Last Filed: 07/14/24 00:19> ROS Other: All systems not noted in ROS Statement are negative. <Gus Mcdonald - Last Filed: 07/21/24 23:19> ROS Statement: Those systems with pertinent positive or pertinent negative responses have been documented in the HPI. Past Medical History Past Medical History: Asthma, GERD/Reflux, Skin Disorder Additional Past Medical History / Comment(s): eczema, migraines, hx vertigo.IBS, Hiatal hernia History of Any Multi-Drug Resistant Organisms: None Reported Past Surgical History: Cholecystectomy Additional Past Surgical History / Comment(s): WISDOM TEETH. Colonoscopy , EGD Past Anesthesia/Blood Transfusion Reactions: No Reported Reaction Past Psychological History: Anxiety, Depression Smoking Status: Former smoker Past Alcohol Use History: None Reported Past Drug Use History: None Reported - Past Family History Mother Family Medical History: No Reported History <Leonela Davison - Last Filed: 07/14/24 00:19> General Exam Limitations: no limitations <Leonela Davison - Last Filed: 07/14/24 00:19> - General Exam Comments Initial Comments: GENERAL: This is a -year-old in no apparent distress at the time of examination. Pleasant and cooperative. HEENT: Head is atraumatic, normocephalic. Pupils are equal, round, and reactive to light. Sclerae anicteric. Conjunctivae are clear. Mucus membranes of the mouth are moist. Neck is supple. RESPIRATORY: Clear to auscultation. No wheezes, rales, or rhonchi. No use of accessory muscles. Patient maintaining oxygen saturation greater than 92%. No chest wall tenderness is noted on palpation or with deep breathing. CARDIOVASCULAR: Regular rate and rhythm. S1 and S2 noted. No systolic or diastolic murmur auscultated. No JVD noted. No S3 or S4 noted. GASTROINTESTINAL: No distention noted. Abdomen soft and round. Normal active bowel sounds auscultated x 4 quadrants. Tenderness noted upon palpation in the mid epigastric region and periumbilical area. INTEGUMENTARY: No cyanosis. No jaundice. No rashes noted. No cellulitis noted. EXTREMITIES: 2+ peripheral pulses. No evidence of peripheral edema. No calf tenderness noted. PSYCHIATRIC: Awake, alert, and oriented X 3. Appropriate affect. Intact judgement and insight. (Leonela Davison) Course <Leonela Davison - Last Filed: 07/14/24 00:19> Vital Signs 07/13/24 07/14/24 21:01 00:38 Temperature 97.3 F L 99.1 F Pulse Rate 111 H 96 Respiratory 18 18 Rate Blood Pressure 109/75 131/92 O2 Sat by Pulse 97 97 Oximetry - Reevaluation(s) Reevaluation #1: 07/13/24 22:38 Patient resting comfortably in bed, states nausea has improved since starting the fluids and medication. No new complaints at this time (Leonela Davison) Medical Decision Making - Lab Data Result diagrams: 07/13/24 22:09 07/13/24 22:09 <Leonela Davison - Last Filed: 07/14/24 00:19> - Lab Data Result diagrams: 07/13/24 22:09 07/13/24 22:09 <Gus Mcdonald - Last Filed: 07/21/24 23:19> - Medical Decision Making Was pt. sent in by a medical professional or institution (, [facility], [facility], urgent care, hospital, or care home...) When possible be specific @ -No Did you speak to anyone other than the patient for history (EMS, parent, family, police, friend...)? What history was obtained from this source @ -No Did you review nursing and triage notes (agree or disagree)? Why? @ -I reviewed and agree with nursing and triage notes Were old charts reviewed (outside hosp., previous admission, EMS record, old EKG, old radiological studies, urgent care reports/EKG's, care home records)? Report findings @ -No old charts were reviewed Differential Diagnosis? @ -Differential Abdominal Pain Women: Appendicitis, Cholecystitis, diverticulosis, ischemic bowel, pancreatitis, hepatitis, UTI, gastroenteritis, AAA, incarcerated hernia, bowel obstruction, constipation, inflammatory bowel, hepatitis, peptic ulcer disease, splenic infarction, perforated viscus, vulvitis, ovarian torsion, PID, kidney stone, placenta abruption, this is not meant to be an all-inclusive list EKG interpreted by me (3pts min.). @ -As above X-rays interpreted by me (1pt min.). @ -None done CT interpreted by me (1pt min.). @ -None done U/S interpreted by me (1pt. min.). @ -None done What testing was considered but not performed or refused? (CT, X-rays, U/S, labs)? Why? @ -None What meds were considered but not given or refused? Why? @ -None Did you discuss the management of the patient with other professionals (professionals i.e. , PA, [facility], lab, RT, psych nurse, social and human services assistant, human resources services specialist, teacher, stream control officer, community case manager)? Give summary @ -No Was smoking cessation discussed for >3mins.? @ -No Was critical care preformed (if so, how long)? @ -No Were there social determinants of health that impacted care today? How? (Homelessness, low income, unemployed, alcoholism, drug addiction, transportation, low edu. Level, literacy, decrease access to med. care, nursing home, rehab)? @ -No Was there de-escalation of care discussed even if they declined (Discuss DNR or withdrawal of care, Hospice)? DNR status @ -No What co-morbidities impacted this encounter? (DM, HTN, Smoking, COPD, CAD, Cancer, CVA, ARF, Chemo, Hep., AIDS, mental health diagnosis, sleep apnea, morbid obesity)? @ -None Was patient admitted / discharged? Hospital course, mention meds given and route, prescriptions, significant lab abnormalities, going to OR and other pertinent info. @ -Discharged, Lab work was significant for 4+ ketones in the urine and a bicarb of 17. Patient was given 2 L bolus normal saline and 4 mg IV Zofran at which point her symptoms of nausea and vomiting began to resolve as well as most of the abdominal pain. Patient was discharged home with oral Zofran. Undiagnosed new problem with uncertain prognosis? @ -No Drug Therapy requiring intensive monitoring for toxicity (Heparin, Nitro, Insulin, Cardizem)? @ -No Were any procedures done? @ -No Diagnosis/symptom? @ -Default Acute, or Chronic, or Acute on Chronic? @ -Default Uncomplicated (without systemic symptoms) or Complicated (systemic symptoms)? @ -Default Side effects of treatment? @ -No Exacerbation, Progression, or Severe Exacerbation? @ -No Poses a threat to life or bodily function? How? (Chest pain, [place], [place], pneumonia, PE, COPD, DKA, ARF, appy, cholecystitis, CVA, Diverticulitis, Homicidal, Suicidal, threat to staff... and all critical care pts) @ -No (Leonela Davison) I personally saw the patient and performed the critical portion of the service. I discussed the patient care with the Dr Davison. I directed management, care planning and final disposition of the patient. This includes, but not limited to, review of all lab work, radiological studies, EKG's, consultations, vital signs, and nursing notes. EKG interpreted by me (3pts min.) @ [as above] X-Rays interpreted by me (1 pt min.) @ [none] CT interpreted by me ( 1pt min.) @ [none] U/S interpreted by me (1 pt min.) @ [none] Critical care time of [0] minutes excluding separately billable procedures was spent in conjunction with critical care activities provided by the Resident and Attending simultaneously. I was present during [no procedures] for all critical portions of the procedure and as immediately available to furnish service during the entire procedure. (Gus Mcdonald) - Lab Data Lab Results 07/13/24 07/13/24 07/13/24 Range/Units 21:45 22:09 22:09 WBC 7.24 (4.50-10.00) 10*3/uL RBC 5.42 H (4.10-5.20) 10*6/uL Hgb 15.6 H (12.0-15.0) g/dL Hct 45.3 (37.2-46.3) % MCV 83.6 (80.0-97.0) fL MCH 28.8 (27.0-32.0) pg MCHC 34.4 (32.0-37.0) g/dL Plt Count 328 (140-440) 10*3/uL MPV 9.6 (9.5-12.2) fL Immature Gran % (Auto) 0.4 % Neutrophils % 83.4 % Lymphocytes % 10.8 % Monocytes % 5.1 % Eosinophils % 0.0 % Basophils % 0.3 % Immature Gran # 0.03 (0.00-0.04) 10*3/uL Neutrophils # 6.04 (1.80-7.70) 10*3/uL Lymphocytes # 0.78 L (0.90-5.00) 10*3/uL Monocytes # 0.37 (0.20-1.00) 10*3/uL Eosinophils # 0.00 L (0.04-0.35) 10*3/uL Basophils # 0.02 (0.00-0.10) 10*3/uL Sodium 134 L (137-145) mmol/L Potassium 4.6 (3.5-5.1) mmol/L Chloride 100 (98-107) mmol/L Carbon Dioxide 17 L (22-30) mmol/L Anion Gap 17 mmol/L BUN 16 (7-17) mg/dL Creatinine 0.54 (0.52-1.04) mg/dL Est GFR (CKD-EPI)AfAm >90 (>60 ml/min/1.73 sqM) Est GFR (CKD-EPI)NonAf >90 (>60 ml/min/1.73 sqM) Glucose 103 H (74-99) mg/dL Calcium 9.5 (8.4-10.2) mg/dL Total Bilirubin 1.1 (0.2-1.3) mg/dL AST 49 H (14-36) U/L ALT 31 (4-34) U/L Alkaline Phosphatase 90 (38-126) U/L Total Protein 8.2 (6.3-8.2) g/dL Albumin 4.6 (3.5-5.0) g/dL HCG, Qual Not Detected Urine Color Yellow Urine Appearance Turbid H (Clear) Urine pH 6.0 (5.0-8.0) Ur Specific [place] 1.033 (1.001-1.035) Urine Protein 2+ H (Negative) Urine Glucose (UA) Trace H (Negative) Urine Ketones 4+ H (Negative) Urine Blood Small H (Negative) Urine Nitrite Negative (Negative) Urine Bilirubin 1+ H (Negative) Urine Urobilinogen 3.0 (<2.0) mg/dL Ur Leukocyte Esterase Moderate H (Negative) Urine RBC 9 H (0-5) /hpf Urine WBC 76 H (0-5) /hpf Ur Squamous Epith Cells 102 H (0-4) /hpf Urine Bacteria Many H (None) /hpf Urine Mucus Many H (None) /hpf Disposition Is patient prescribed a controlled substance at d/c from ED?: No <Leonela Davison - Last Filed: 07/14/24 00:19> <Gus Mcdonadl - Last Filed: 07/21/24 23:19> Clinical Impression: Abdominal pain Disposition: HOME SELF-CARE Instructions (If sedation given, give patient instructions): Abdominal Pain (ED) Prescriptions: Ondansetron Odt [Zofran Odt] 4 mg PO Q8HR PRN #30 tab PRN Reason: Nausea And Vomiting Referrals: Rosie Martin DO [Primary Care Provider] - 1-2 days
[2024-07-13] MEDS ORDERED: ONDANSETRON 8 MG in SODIUM CHLORIDE 0.9% 50 ML IVPB ONE (22:00)
[2024-07-13 22:04] LABS: Appearance,Urine Turbid (Clear); Bacteria,Urine Many /hpf; Bilirubin,Urine 1+ (Negative); Blood,Urine Small (Negative); Color,Urine Yellow; Glucose,Urine (UA) Trace (Negative); Ketones,Urine 4+ (Negative); Leukocyte Esterase,Urine Moderate (Negative); Mucus,Urine Many /hpf; Nitrite,Urine Negative (Negative); Protein,Urine 2+ (Negative); RBC,Urine 9 /hpf (0-5); Specific Gravity,Urine 1.033 (1.001-1.035); Squamous Epithelial Cell,Urine 102 /hpf (0-4); WBC,Urine 76 /hpf (0-5)
[2024-07-13] MEDS: ONDANSETRON 4 MG/2 ML VIAL IVP STA (22:06)
[2024-07-13] MEDS: SODIUM CHLORIDE 0.9% 1,000 ML IV ONE ×2 (22:06→23:29)
[2024-07-13 22:43] LABS: Basophils # (A) 0.02 10*3/uL (0.00-0.10); Basophils % (A) 0.3 %; HCT 45.3 % (37.2-46.3); HGB 15.6 g/dL (12.0-15.0); Lymphocytes # (A) 0.78 10*3/uL (0.90-5.00); Lymphocytes % (A) 10.8 %; MCH 28.8 pg (27.0-32.0); MCHC 34.4 g/dL (32.0-37.0); MCV 83.6 fL (80.0-97.0); Mean Platelet Volume 9.6 fL (9.5-12.2); Monocytes # (A) 0.37 10*3/uL (0.20-1.00); Monocytes % (A) 5.1 %; Neutrophils # (A) 6.04 10*3/uL (1.80-7.70); Neutrophils % (A) 83.4 %; Platelet Count 328 10*3/uL (140-440); RBC 5.42 10*6/uL (4.10-5.20); RDW 12.6 % (11.5-14.5); WBC 7.24 10*3/uL (4.50-10.00)
[2024-07-13 23:06] LABS: HCG,Qualitative Serum Not Detected
[2024-07-13 23:07] LABS: ALT 31 U/L (4-34); African American GFR (CKD) >90 (>60 ml/min/1.73 sqM); Anion Gap 17 mmol/L; Blood Urea Nitrogen 16 mg/dL (7-17); Calcium 9.5 mg/dL (8.4-10.2); Carbon Dioxide 17 mmol/L (22-30); Chloride 100 mmol/L (98-107); Glucose 103 mg/dL (74-99); Non-African American GFR(CKD) >90 (>60 ml/min/1.73 sqM); Sodium 134 mmol/L (137-145); Total Bilirubin 1.1 mg/dL (0.2-1.3)
[2024-07-13 23:13] LABS: AST 49 U/L (14-36); Albumin 4.6 g/dL (3.5-5.0); Alkaline Phosphatase 90 U/L (38-126); Potassium 4.6 mmol/L (3.5-5.1); Total Protein 8.2 g/dL (6.3-8.2)
[2024-07-14 00:39] VITALS: BP 131/92; PULSE 96; TEMP 99.1
== END 2024-07-14 00:38 | disposition home or self-care (01) ==
LOC: EC 20:25
DX: R10.13 Epigastric pain (principal); R10.33 Periumbilical pain; Z91.040 Latex allergy status; Z91.09 Other allergy status, other than to drugs and biological substances; Z87.891 Personal history of nicotine dependence
CPT/HCPCS: 36415; 80053; 85025; 81001; 84703; 99284; 96374; 96361 ×2; J2405